=== PATIENT | female | born 1950 | race African-American/Black ===

== ENCOUNTER → 2017-03-06 | Outpatient (CLI) | payer MEDICARE, MEDICAID ==
[~2017-03-06] MED LIST: ATOR20TA65 PO; CARV12.545 PO; FURO40TA5 PO; HYDR-4134 PO; LEVO250T2 PO; SPIR50TA26 PO
== END | disposition home or self-care (01) ==
LOC: MAMMO 13:41
PROVIDERS: ATTEND Internal Medicine Nephrology
DX: Z12.31 Encounter for screening mammogram for malignant neoplasm of breast (principal)
CPT/HCPCS: G0202

== ENCOUNTER 2017-05-19 15:00 | Inpatient (IN) | payer MEDICARE, MEDICAID ==
[~2017-05-19] VITALS: Ht 165.1 cm; Wt 57.2 kg
[2017-05-19 16:33] LABS: BASOPHILS % 1.1 % (0.0-2.0); HEMATOCRIT. 24.7 % (36.0-48.0); HEMOGLOBIN. 7.6 g/dL (12.0-16.0); MEAN CORPUSCULAR HEMOGLOBIN 24.4 pg (28.0-32.0); MEAN CORPUSCULAR VOLUME 79.8 fL (81.0-99.0); MEAN PLATELET VOLUME 8.4 fl (7.4-10.4); MONOCYTES % 7.1 % (2.0-8.0); NEUTROPHILS % 57.8 % (40.0-76.0); PLATELET 170 x1000/uL (130-400)
[2017-05-19 16:36] LABS: PROTHROMBIN TIME 10.5 sec
[2017-05-19 16:43] LABS: CARBON DIOXIDE 25 mEq/L (21-32); CHLORIDE 111 mEq/L (98-107)
[2017-05-19] MEDS: SODIUM CHLORIDE 0.9% 1,000 ML IV ONE ×2 (17:51→19:30)
[2017-05-19 20:18] LABS: CLARITY URINE CLEAR (CLEAR); COLOR URINE YELLOW (YELLOW); GLUCOSE URINE NEGATIVE (NEGATIVE); KETONES URINE NEGATIVE (NEGATIVE); LEUKOCYTE ESTERASE URINE NEGATIVE (NEGATIVE); NITRITE URINE NEGATIVE (NEGATIVE); OCCULT BLOOD URINE TRACE (NEGATIVE); PROTEIN URINE 4+ (NEGATIVE); SPECIFIC GRAVITY URINE 1.014 (1.005-1.030); UROBILINOGEN URINE 0.2 E.U./dL (0.2-1.0)
[2017-05-19 23:30] VITALS: BP 224/105
[2017-05-20] VITALS (14 sets, daily range): BP systolic 140–190; BP diastolic 70–91
[2017-05-20] MEDS ORDERED: HYDROMORPHONE HCL/PF 2MG/ML CPJ IV PRN
[2017-05-20] MEDS: CLONIDINE 0.1MG TABLET PO PRN ×2 (00:37→06:17)
[2017-05-20 07:50] LABS: CARBON DIOXIDE 23 mEq/L (21-32); CHLORIDE 113 mEq/L (98-107); TROPONIN I < 0.02 ng/mL (0.00-0.04)
[2017-05-20] MEDS: HYDRALAZINE HCL 25MG TABLET PO SCH ×3 (08:55→17:29)
[2017-05-20] MEDS: CARVEDILOL 12.5MG TABLET PO SCH ×2 (08:56→17:30)
[2017-05-20] MEDS ORDERED: FUROSEMIDE 40MG TABLET PO SCH (09:00)
[2017-05-20] MEDS: IPRATROPIUM/ALBUTEROL 0.5-3(2.5)MG/3ML NEB INH SCH ×2 (15:37→20:07)
[2017-05-20 17:25] LABS: BASOPHILS % 1.1 % (0.0-2.0); EOSINOPHILS % 3.7 % (0.0-5.0); HEMATOCRIT. 31.1 % (36.0-48.0); HEMOGLOBIN. 10.1 g/dL (12.0-16.0); LYMPHOCYTES % 24.4 % (20.0-50.0); MEAN CORPUSCULAR HEMOGLOBIN 26.4 pg (28.0-32.0); MEAN CORPUSCULAR VOLUME 81.4 fL (81.0-99.0); MEAN PLATELET VOLUME 8.7 fl (7.4-10.4); MONOCYTES % 10.1 % (2.0-8.0); NEUTROPHILS % 60.7 % (40.0-76.0); PLATELET 140 x1000/uL (130-400); RED BLOOD CELL COUNT 3.82 mill/uL (4.2-5.4); RED CELL DISTRIBUTION WIDTH 21.1 % (11.6-14.6)
[2017-05-20] MEDS: ACETAMINOPHEN 325MG TABLET PO PRN (17:40)
[2017-05-20] MEDS ORDERED: DOCUSATE SODIUM 100MG CAPSULE PO PRN (19:30)
[2017-05-20] MEDS ORDERED: ONDANSETRON HCL 4MG/2ML VIAL IV PRN ×2 (19:30)
[2017-05-20] MEDS ORDERED: IPRATROPIUM/ALBUTEROL 0.5-3(2.5)MG/3ML NEB INH PRN (19:30)
[2017-05-20] MEDS: AMLODIPINE 5MG TABLET PO SCH (20:31)
[2017-05-20] MEDS: EPOETIN ALFA 4000UNITS/ML VIAL SUBCUT SCH (20:31)
[2017-05-21] MEDS: CLONIDINE 0.1MG TABLET PO PRN (01:02)
[2017-05-21 04:00] VITALS: BP 143/84
[2017-05-21] MEDS: IPRATROPIUM/ALBUTEROL 0.5-3(2.5)MG/3ML NEB INH SCH ×5 (04:06→20:12)
[2017-05-21 06:13] LABS: CARBON DIOXIDE 24 mEq/L (21-32); CHLORIDE 112 mEq/L (98-107); PHOSPHORUS 2.9 mg/dL (2.5-4.9); TOTAL IRON BINDING CAPACITY 265 ug/dL (250-450)
[2017-05-21] MEDS: OMEPRAZOLE 20MG CAPSULE EXTENDED RELEASE PO SCH (06:38)
[2017-05-21 06:56] LABS: BASOPHILS % 0.9 % (0.0-2.0); EOSINOPHILS % 4.6 % (0.0-5.0); HEMATOCRIT. 28.1 % (36.0-48.0); LYMPHOCYTES % 27.8 % (20.0-50.0); MEAN CORPUSCULAR HEMOGLOBIN 26.1 pg (28.0-32.0); MEAN CORPUSCULAR VOLUME 81.4 fL (81.0-99.0); MEAN PLATELET VOLUME 8.8 fl (7.4-10.4); MONOCYTES % 8.8 % (2.0-8.0); NEUTROPHILS % 57.9 % (40.0-76.0); PLATELET 127 x1000/uL (130-400); RED BLOOD CELL COUNT 3.45 mill/uL (4.2-5.4); RED CELL DISTRIBUTION WIDTH 21.6 % (11.6-14.6)
[2017-05-21] MEDS ORDERED: POTASSIUM CHLORIDE 20MEQ TABLET SR PO NR (07:15)
[2017-05-21 08:00] VITALS: BP 143/71
[2017-05-21] MEDS: SPIRONOLACTONE 50MG TABLET PO SCH ×2 (08:50→21:16)
[2017-05-21] MEDS: CARVEDILOL 12.5MG TABLET PO SCH ×2 (08:51→16:19)
[2017-05-21] MEDS: AMLODIPINE 5MG TABLET PO SCH (08:51)
[2017-05-21] MEDS: LEVOFLOXACIN 250MG TABLET PO SCH (08:52)
[2017-05-21] MEDS: HYDRALAZINE HCL 25MG TABLET PO SCH ×3 (08:58→16:19)
[2017-05-21] MEDS ORDERED: MAGNESIUM 2 G PREMIX 50 ML IV NR (09:00)
[2017-05-21 11:09] LABS: CLARITY URINE CLEAR (CLEAR); COLOR URINE YELLOW (YELLOW); GLUCOSE URINE TRACE (NEGATIVE); KETONES URINE NEGATIVE (NEGATIVE); LEUKOCYTE ESTERASE URINE NEGATIVE (NEGATIVE); NITRITE URINE NEGATIVE (NEGATIVE); OCCULT BLOOD URINE TRACE (NEGATIVE); PROTEIN URINE 4+ (NEGATIVE); SPECIFIC GRAVITY URINE 1.019 (1.005-1.030); UROBILINOGEN URINE 0.2 E.U./dL (0.2-1.0)
[2017-05-21] MEDS: SILDENAFIL CITRATE 20MG TABLET PO SCH ×2 (13:12→21:16)
[2017-05-21 14:34] VITALS: BP 151/71
[2017-05-21] MEDS ORDERED: SODIUM CHLORIDE 0.45% 1,000 ML IV SCH (15:00)
[2017-05-21] MEDS: TRAMADOL 50MG TABLET PO PRN ×2 (15:35→23:49)
[2017-05-21 16:00] VITALS: BP 153/68
[2017-05-21] MEDS: ATORVASTATIN CALCIUM 20MG TABLET PO SCH (21:16)
[2017-05-21] MEDS: ACETAMINOPHEN 325MG TABLET PO PRN (21:18)
[2017-05-21 21:55] VITALS: BP 151/71
[2017-05-21] MEDS ORDERED: ALBUMIN HUMAN 25GM/100ML (25%) IV NR (23:00)
[2017-05-21 23:23] LABS: TOTAL IRON BINDING CAPACITY 262 ug/dL (250-450)
[2017-05-22] VITALS (7 sets, daily range): BP systolic 129–181; BP diastolic 70–85
[2017-05-22] MEDS: IPRATROPIUM/ALBUTEROL 0.5-3(2.5)MG/3ML NEB INH SCH ×4 (04:15→20:00)
[2017-05-22] MEDS: OMEPRAZOLE 20MG CAPSULE EXTENDED RELEASE PO SCH (06:41)
[2017-05-22] MEDS: SILDENAFIL CITRATE 20MG TABLET PO SCH ×3 (06:41→21:19)
[2017-05-22 06:55] LABS: BASOPHILS % 1.3 % (0.0-2.0); EOSINOPHILS % 4.6 % (0.0-5.0); HEMATOCRIT. 28.6 % (36.0-48.0); HEMOGLOBIN. 9.1 g/dL (12.0-16.0); LYMPHOCYTES % 26.2 % (20.0-50.0); MEAN CORPUSCULAR HEMOGLOBIN 26.3 pg (28.0-32.0); MEAN CORPUSCULAR VOLUME 82.6 fL (81.0-99.0); MEAN PLATELET VOLUME 8.8 fl (7.4-10.4); MONOCYTES % 8.7 % (2.0-8.0); NEUTROPHILS % 59.2 % (40.0-76.0); PLATELET 125 x1000/uL (130-400); RED BLOOD CELL COUNT 3.46 mill/uL (4.2-5.4)
[2017-05-22] MEDS ORDERED: ALBUMIN HUMAN 25GM/100ML (25%) IV NR (07:00)
[2017-05-22] MEDS: AMLODIPINE 5MG TABLET PO SCH (09:40)
[2017-05-22] MEDS: HYDRALAZINE HCL 25MG TABLET PO SCH ×3 (09:40→17:13)
[2017-05-22] MEDS: CARVEDILOL 12.5MG TABLET PO SCH ×2 (09:40→17:14)
[2017-05-22] MEDS: LEVOFLOXACIN 250MG TABLET PO SCH (09:40)
[2017-05-22] MEDS: SPIRONOLACTONE 50MG TABLET PO SCH ×2 (09:42→21:19)
[2017-05-22] MEDS: ACETAMINOPHEN 325MG TABLET PO PRN (10:12)
[2017-05-22 10:28] LABS: PLATELET ESTIMATE SLIGHTLY DECREASED
[2017-05-22] MEDS: FERROUS SULFATE 325MG TABLET PO SCH ×2 (12:57→17:14)
[2017-05-22] MEDS: TRAMADOL 50MG TABLET PO PRN ×2 (12:58→21:20)
[2017-05-22] MEDS: LISINOPRIL 20MG TABLET PO SCH (17:14)
[2017-05-22] MEDS: EPOETIN ALFA 4000UNITS/ML VIAL SUBCUT SCH (21:19)
[2017-05-22] MEDS: ATORVASTATIN CALCIUM 20MG TABLET PO SCH (21:19)
[2017-05-23 00:03] VITALS: BP 139/59
[2017-05-23] MEDS: IPRATROPIUM/ALBUTEROL 0.5-3(2.5)MG/3ML NEB INH SCH ×2 (02:45→07:54)
[2017-05-23 04:00] VITALS: BP 151/61
[2017-05-23 05:50] LABS: BASOPHILS % 0.9 % (0.0-2.0); EOSINOPHILS % 0.4 % (0.0-5.0); HEMATOCRIT. 30.7 % (36.0-48.0); HEMOGLOBIN. 9.8 g/dL (12.0-16.0); LYMPHOCYTES % 19.2 % (20.0-50.0); MEAN CORPUSCULAR HEMOGLOBIN 26.8 pg (28.0-32.0); MEAN CORPUSCULAR VOLUME 83.6 fL (81.0-99.0); MEAN PLATELET VOLUME 9.3 fl (7.4-10.4); MONOCYTES % 7.8 % (2.0-8.0); NEUTROPHILS % 71.7 % (40.0-76.0); PLATELET 152 x1000/uL (130-400); RED BLOOD CELL COUNT 3.66 mill/uL (4.2-5.4); RED CELL DISTRIBUTION WIDTH 25.4 % (11.6-14.6)
[2017-05-23] MEDS: SILDENAFIL CITRATE 20MG TABLET PO SCH ×2 (06:51→13:26)
[2017-05-23] MEDS: TRAMADOL 50MG TABLET PO PRN (06:51)
[2017-05-23 08:00] VITALS: BP 127/67
[2017-05-23] MEDS: FERROUS SULFATE 325MG TABLET PO SCH ×2 (08:58→13:26)
[2017-05-23] MEDS: SPIRONOLACTONE 50MG TABLET PO SCH (08:58)
[2017-05-23] MEDS: CARVEDILOL 12.5MG TABLET PO SCH (08:59)
[2017-05-23] MEDS: HYDRALAZINE HCL 25MG TABLET PO SCH ×2 (08:59→13:30)
[2017-05-23] MEDS: AMLODIPINE 5MG TABLET PO SCH (09:00)
[2017-05-23] MEDS ORDERED: FAMOTIDINE 20MG TABLET PO SCH (09:00)
[2017-05-23] MEDS: LISINOPRIL 20MG TABLET PO SCH (09:04)
[2017-05-23 14:03] VITALS: BP 145/85
== END 2017-05-23 14:40 | disposition home or self-care (01) | DRG 432 ==
LOC: ER 20:02 → ENRESERV 21:47 → 6WST 22:23
PROVIDERS: ADMIT Family Medicine Adult Medicine; ATTEND Family Medicine Adult Medicine
PROC: 30233N1 Transfusion of Nonautologous Red Blood Cells into Peripheral Vein, Percutaneous Approach (ICD-10-PCS; principal; 2017-05-20)
PROC: 0W9G3ZZ Drainage of Peritoneal Cavity, Percutaneous Approach (ICD-10-PCS; 2017-05-23)
DX: K74.60 Unspecified cirrhosis of liver (principal); N17.0 Acute kidney failure with tubular necrosis; E43 Unspecified severe protein-calorie malnutrition; I13.0 Hypertensive heart and chronic kidney disease with heart failure and stage 1 through stage 4 chronic kidney disease, or unspecified chronic kidney disease; I50.30 Unspecified diastolic (congestive) heart failure; K76.6 Portal hypertension; R18.8 Other ascites; D50.9 Iron deficiency anemia, unspecified; B18.2 Chronic viral hepatitis C; D63.1 Anemia in chronic kidney disease; D69.6 Thrombocytopenia, unspecified; N18.9 Chronic kidney disease, unspecified; E78.5 Hyperlipidemia, unspecified; E83.42 Hypomagnesemia; F17.210 Nicotine dependence, cigarettes, uncomplicated; I27.2 Other secondary pulmonary hypertension; J44.9 Chronic obstructive pulmonary disease, unspecified; Z79.899 Other long term (current) drug therapy; Z80.0 Family history of malignant neoplasm of digestive organs; Z82.49 Family history of ischemic heart disease and other diseases of the circulatory system; Z90.710 Acquired absence of both cervix and uterus; Z68.21 Body mass index [BMI] 21.0-21.9, adult; Z88.1 Allergy status to other antibiotic agents
CPT/HCPCS: 36415; 36430; 49083; 71010; 76770; 80048; 80053; 80076; 81001; 82270; 82570; 82728; 83540; 83550; 83735; 84100; 84156; 84484; 85025; 85610; 86850; 86900; 86920; 87070; 87086; 87205; 89050; 93005; 93306; 93970; 94640; 94664; 97162; 99291; J0885; J2405; J3475; J7030; J7040; J7050; J7620; P9016; P9047

== ENCOUNTER → 2017-07-15 | Outpatient (CLI) | payer MEDICARE, MEDICAID ==
[~2017-07-15] MED LIST changes: +ALBU18HF2 IH; +ALLO100T PO; +COR6 PO; +DOCU-150 PO; +SILD20TA PO
[2017-07-15 16:53] LABS: BASOPHILS % 1.7 % (0.0-2.0); EOSINOPHILS % 4.2 % (0.0-5.0); HEMOGLOBIN. 8.9 g/dL (12.0-16.0); LYMPHOCYTES % 35.7 % (20.0-50.0); MEAN CORPUSCULAR HEMOGLOBIN 28.4 pg (28.0-32.0); MEAN CORPUSCULAR VOLUME 89.6 fL (81.0-99.0); MEAN PLATELET VOLUME 8.7 fl (7.4-10.4); MONOCYTES % 9.2 % (2.0-8.0); NEUTROPHILS % 49.2 % (40.0-76.0); PLATELET 147 x1000/uL (130-400); RED BLOOD CELL COUNT 3.13 mill/uL (4.2-5.4); RED CELL DISTRIBUTION WIDTH 21.7 % (11.6-14.6)
[2017-07-15 16:59] LABS: PARTIAL THROMBOPLASTIN TIME 31.3 sec (23.4-31.0); PROTHROMBIN TIME 10.2 sec (9.4-11.6)
[2017-07-15 17:08] LABS: CARBON DIOXIDE 24 mEq/L (21-32); CHLORIDE 114 mEq/L (98-107)
[2017-07-15 17:10] LABS: CREATININE URINE 24 HR 580.5 mg/24hr (800-2000)
[2017-07-15 17:19] LABS: PHOSPHORUS 2.7 mg/dL (2.5-4.9)
[2017-07-15 17:36] LABS: VITAMIN B12 SERUM 407 pg/mL (211-911)
[2017-07-17 09:07] LABS: VITAMIN D 25-OH 5.8 ng/mL (30.0-100.0)
[2017-07-17 13:13] LABS: CANCER ANTIGEN 125 164.2 U/mL (0.0-38.1)
== END | disposition home or self-care (01) ==
LOC: LAB 15:55
PROVIDERS: ATTEND Internal Medicine Nephrology
DX: N18.4 Chronic kidney disease, stage 4 (severe) (principal); K72.90 Hepatic failure, unspecified without coma
CPT/HCPCS: 36415; 80053; 82306; 82570; 82607; 83735; 83970; 84100; 84443; 85025; 85610; 85730; 86304

== ENCOUNTER → 2017-07-16 | Day surgery (SDC) | payer MEDICARE, MEDICAID ==
[~2017-07-16] MED LIST changes: +LIDOCAINE HCL 1% 20ML VIAL (Pyxis) INJ ONE; +SODIUM BICARBONATE 4.2% 5 MEQ/10 ML DISP.SYRIN IV ONE
== END | disposition home or self-care (01) ==
LOC: RAD 09:49
PROVIDERS: ATTEND Internal Medicine Nephrology
DX: R18.8 Other ascites (principal)
CPT/HCPCS: 49083; J3490

== ENCOUNTER → 2017-08-28 | Day surgery (SDC) | payer MEDICARE, MEDICAID ==
[~2017-08-28] MED LIST changes: -CARV12.545 PO; -HYDR-4134 PO; -LEVO250T2 PO; +SODIUM BICARBONATE 4% (2.4MEQ) 5ML VIAL IV ONE; -SODIUM BICARBONATE 4.2% 5 MEQ/10 ML DISP.SYRIN IV ONE
== END | disposition home or self-care (01) ==
LOC: ANGIO 09:55
PROVIDERS: ATTEND Internal Medicine Nephrology
DX: R18.8 Other ascites (principal)
CPT/HCPCS: 49083; 77002; C1769; J3490; J7050; L8514

== ENCOUNTER 2017-12-24 12:49 | Inpatient (IN) | payer MEDICARE, MEDICAID ==
[~2017-12-24] VITALS: Ht 162.6 cm; Wt 53.2 kg
[~2017-12-24 12:49] MED LIST changes: -LIDOCAINE HCL 1% 20ML VIAL (Pyxis) INJ ONE; -SODIUM BICARBONATE 4% (2.4MEQ) 5ML VIAL IV ONE
[2017-12-24] MEDS ORDERED: FUROSEMIDE 40MG/4ML VIAL IV STA (16:20)
[2017-12-24] MEDS ORDERED: ASPIRIN 81MG TABLET PO STA (16:20)
[2017-12-24] MEDS ORDERED: ONDANSETRON HCL 4MG/2ML VIAL IV STA (16:20)
[2017-12-24 16:58] LABS: BASOPHILS % 1.7 % (0.0-2.0); EOSINOPHILS % 5.7 % (0.0-5.0); LYMPHOCYTES % 28.1 % (20.0-50.0); MEAN CORPUSCULAR HEMOGLOBIN 27.7 pg (28.0-32.0); MEAN CORPUSCULAR VOLUME 88.3 fL (81.0-99.0); MEAN PLATELET VOLUME 9.1 fl (7.4-10.4); MONOCYTES % 7.4 % (2.0-8.0); NEUTROPHILS % 57.1 % (40.0-76.0); PLATELET 197 x1000/uL (130-400); RED BLOOD CELL COUNT 2.34 mill/uL (4.2-5.4); RED CELL DISTRIBUTION WIDTH 17.5 % (11.6-14.6)
[2017-12-24 17:02] LABS: PARTIAL THROMBOPLASTIN TIME 24.5 sec (23.4-31.0)
[2017-12-24 17:03] LABS: CHLORIDE 113 mEq/L (98-107)
[2017-12-24 17:05] LABS: AMMONIA < 25 uMol/L (<32)
[2017-12-24 17:07] LABS: HEMATOCRIT. 20.7 % (36.0-48.0); HEMOGLOBIN. 6.5 g/dL (12.0-16.0)
[2017-12-24 17:10] LABS: CREATINE KINASE 150 IU/L (26-192); TROPONIN I < 0.02 ng/mL (0.00-0.04)
[2017-12-24] MEDS ORDERED: CLONIDINE 0.2MG TABLET PO ONE (18:45)
[2017-12-24] MEDS ORDERED: AZITHROMYCIN 500 MG TABLET PO ONE (18:45)
[2017-12-24] MEDS ORDERED: CEFTRIAXONE 1 G PREMIX 50 ML IV ONE (18:45)
[2017-12-24] MEDS ORDERED: LORAZEPAM 2MG/ML CPJ IV PRN (23:00)
[2017-12-24] MEDS ORDERED: MAGNESIUM/ALUMINUM HYDROXIDE/SIMETHICONE 30ML UDC PO PRN (23:00)
[2017-12-25] VITALS (8 sets, daily range): BP systolic 136–196; BP diastolic 64–85
[2017-12-25] MEDS ORDERED: HYDROMORPHONE HCL/PF 2MG/ML CPJ IV PRN (00:45)
[2017-12-25] MEDS ORDERED: LORAZEPAM 0.5MG TABLET PO PRN (01:00)
[2017-12-25] MEDS ORDERED: HYDR-2510 PO (03:13)
[2017-12-25 06:05] LABS: CLARITY URINE CLEAR (CLEAR); COLOR URINE YELLOW (YELLOW); KETONES URINE NEGATIVE (NEGATIVE); LEUKOCYTE ESTERASE URINE NEGATIVE (NEGATIVE); NITRITE URINE NEGATIVE (NEGATIVE); OCCULT BLOOD URINE TRACE (NEGATIVE); PROTEIN URINE 3+ (NEGATIVE); SPECIFIC GRAVITY URINE 1.012 (1.005-1.030); UROBILINOGEN URINE 0.2 E.U./dL (0.2-1.0)
[2017-12-25] MEDS: CLONIDINE 0.1MG TABLET PO PRN (06:13)
[2017-12-25 06:50] LABS: BASOPHILS % 1.1 % (0.0-2.0); EOSINOPHILS % 7.1 % (0.0-5.0); HEMATOCRIT. 22.1 % (36.0-48.0); HEMOGLOBIN. 7.2 g/dL (12.0-16.0); LYMPHOCYTES % 20.4 % (20.0-50.0); MEAN CORPUSCULAR HEMOGLOBIN 28.3 pg (28.0-32.0); MEAN CORPUSCULAR VOLUME 86.5 fL (81.0-99.0); MEAN PLATELET VOLUME 8.7 fl (7.4-10.4); MONOCYTES % 11.8 % (2.0-8.0); NEUTROPHILS % 59.6 % (40.0-76.0); PLATELET 134 x1000/uL (130-400); RED BLOOD CELL COUNT 2.56 mill/uL (4.2-5.4); RED CELL DISTRIBUTION WIDTH 16.4 % (11.6-14.6)
[2017-12-25 08:27] LABS: *AMPHETAMINES SCREEN URINE NEGATIVE (NEGATIVE); *BARBITURATES SCREEN URINE NEGATIVE (NEGATIVE); *BENZODIAZEPINES SCREEN URINE NEGATIVE (NEGATIVE); *COCAINE SCREEN URINE NEGATIVE (NEGATIVE); CANNABINOID URINE SCREEN PRESUMTIVE POSITIVE (NEGATIVE); METHADONE URINE SCREEN NEGATIVE (NEGATIVE); OPIATES URINE SCREEN NEGATIVE (NEGATIVE); PHENCYCLIDINE URINE SCREEN NEGATIVE (NEGATIVE)
[2017-12-25] MEDS: LISINOPRIL 20MG TABLET PO SCH ×2 (08:42→08:47)
[2017-12-25] MEDS ORDERED: FUROSEMIDE 40MG/4ML VIAL IVP ONE (09:00)
[2017-12-25] MEDS ORDERED: ENOXAPARIN 30MG/0.3ML SYR SUBCUT SCH (09:00)
[2017-12-25] MEDS ORDERED: DOCUSATE SODIUM 100MG CAPSULE PO PRN ×2 (10:45)
[2017-12-25] MEDS ORDERED: ONDANSETRON HCL 4MG/2ML VIAL IV PRN (10:45)
[2017-12-25] MEDS ORDERED: IPRATROPIUM/ALBUTEROL 0.5-3(2.5)MG/3ML NEB INH PRN (11:00)
[2017-12-25] MEDS: AZITHROMYCIN 500 MG TABLET PO SCH (12:33)
[2017-12-25] MEDS: HYDROCHLOROTHIAZIDE 25MG TABLET PO SCH ×2 (12:34→18:25)
[2017-12-25] MEDS: ALLOPURINOL 100 MG TABLET PO SCH (12:34)
[2017-12-25] MEDS: OMEPRAZOLE 20MG CAPSULE EXTENDED RELEASE PO SCH (12:34)
[2017-12-25] MEDS: CARVEDILOL 6.25 MG TABLET PO SCH ×2 (12:34→21:40)
[2017-12-25] MEDS ORDERED: HYDROCHLOROTHIAZIDE 50MG TABLET PO SCH (13:00)
[2017-12-25] MEDS: SILDENAFIL CITRATE 20MG TABLET PO SCH ×2 (14:41→21:40)
[2017-12-25 18:09] LABS: AMMONIA 27 uMol/L (<32)
[2017-12-25] MEDS: SPIRONOLACTONE 50MG TABLET PO SCH (18:25)
[2017-12-25] MEDS ORDERED: ZOLPIDEM TARTRATE 5MG TABLET PO PRN (21:00)
[2017-12-25] MEDS: ATORVASTATIN CALCIUM 20MG TABLET PO SCH (21:40)
[2017-12-25] MEDS: IPRATROPIUM/ALBUTEROL 0.5-3(2.5)MG/3ML NEB HHN SCH (21:58)
[2017-12-26] VITALS (7 sets, daily range): BP systolic 127–175; BP diastolic 61–74
[2017-12-26] MEDS: CLONIDINE 0.1MG TABLET PO PRN ×3 (00:49→16:47)
[2017-12-26] MEDS: IPRATROPIUM/ALBUTEROL 0.5-3(2.5)MG/3ML NEB HHN SCH ×4 (03:01→21:14)
[2017-12-26] MEDS: SILDENAFIL CITRATE 20MG TABLET PO SCH ×3 (06:14→21:19)
[2017-12-26 06:53] LABS: BASOPHILS % 1.5 % (0.0-2.0); HEMATOCRIT. 22.1 % (36.0-48.0); HEMOGLOBIN. 7.2 g/dL (12.0-16.0); LYMPHOCYTES % 29.8 % (20.0-50.0); MEAN CORPUSCULAR HEMOGLOBIN 27.6 pg (28.0-32.0); MEAN CORPUSCULAR VOLUME 84.8 fL (81.0-99.0); MEAN PLATELET VOLUME 8.9 fl (7.4-10.4); NEUTROPHILS % 51.7 % (40.0-76.0); PLATELET 134 x1000/uL (130-400); RED CELL DISTRIBUTION WIDTH 16.3 % (11.6-14.6)
[2017-12-26 07:35] LABS: CHLORIDE 112 mEq/L (98-107)
[2017-12-26 07:46] LABS: AMYLASE 124 IU/L (25-115)
[2017-12-26] MEDS: CARVEDILOL 6.25 MG TABLET PO SCH ×2 (08:15→21:19)
[2017-12-26] MEDS: SPIRONOLACTONE 50MG TABLET PO SCH ×2 (08:15→16:46)
[2017-12-26] MEDS: AZITHROMYCIN 500 MG TABLET PO SCH (08:15)
[2017-12-26] MEDS: ALLOPURINOL 100 MG TABLET PO SCH (08:15)
[2017-12-26] MEDS: OMEPRAZOLE 20MG CAPSULE EXTENDED RELEASE PO SCH (08:15)
[2017-12-26] MEDS ORDERED: SODIUM BICARBONATE 4% (2.4MEQ) 5ML VIAL IV ONE (15:18)
[2017-12-26] MEDS ORDERED: LIDOCAINE HCL 1% 20ML VIAL (Pyxis) INJ ONE (15:18)
[2017-12-26] MEDS ORDERED: EPOETIN ALFA 4000UNITS/ML VIAL SUBCUT SCH (21:00)
[2017-12-26] MEDS: ATORVASTATIN CALCIUM 20MG TABLET PO SCH (21:19)
[2017-12-27] VITALS (11 sets, daily range): BP systolic 150–182; BP diastolic 61–81
[2017-12-27] MEDS: IPRATROPIUM/ALBUTEROL 0.5-3(2.5)MG/3ML NEB HHN SCH ×5 (00:37→18:00)
[2017-12-27] MEDS: ACETAMINOPHEN 650MG/20.3ML UDC GT PRN (05:20)
[2017-12-27] MEDS: CLONIDINE 0.1MG TABLET PO PRN ×2 (05:20→16:27)
[2017-12-27] MEDS: SILDENAFIL CITRATE 20MG TABLET PO SCH ×3 (06:27→22:05)
[2017-12-27] MEDS: SPIRONOLACTONE 50MG TABLET PO SCH ×2 (06:27→17:00)
[2017-12-27 07:34] LABS: EOSINOPHILS % 6.6 % (0.0-5.0); LYMPHOCYTES % 28.2 % (20.0-50.0); MEAN CORPUSCULAR HEMOGLOBIN 27.8 pg (28.0-32.0); MEAN CORPUSCULAR VOLUME 85.1 fL (81.0-99.0); MEAN PLATELET VOLUME 9.3 fl (7.4-10.4); MONOCYTES % 9.7 % (2.0-8.0); NEUTROPHILS % 54.5 % (40.0-76.0); PLATELET 142 x1000/uL (130-400); RED BLOOD CELL COUNT 2.43 mill/uL (4.2-5.4)
[2017-12-27 07:46] LABS: HEMOGLOBIN. 6.8 g/dL (12.0-16.0)
[2017-12-27 07:47] LABS: HEMATOCRIT. 20.7 % (36.0-48.0)
[2017-12-27 08:11] LABS: AMYLASE 111 IU/L (25-115)
[2017-12-27] MEDS: OMEPRAZOLE 20MG CAPSULE EXTENDED RELEASE PO SCH (09:18)
[2017-12-27] MEDS: ALLOPURINOL 100 MG TABLET PO SCH (09:18)
[2017-12-27] MEDS: CARVEDILOL 6.25 MG TABLET PO SCH ×2 (09:18→20:43)
[2017-12-27] MEDS: AZITHROMYCIN 500 MG TABLET PO SCH (09:18)
[2017-12-27] MEDS ORDERED: AMLODIPINE 5MG TABLET PO NR (17:50)
[2017-12-27] MEDS ORDERED: HYDRALAZINE 20MG/ML VIAL IV PRN (18:00)
[2017-12-27] MEDS ORDERED: HYDRALAZINE 20MG/ML VIAL IV NR (20:30)
[2017-12-27] MEDS: ATORVASTATIN CALCIUM 20MG TABLET PO SCH (20:43)
[2017-12-28] VITALS (11 sets, daily range): BP systolic 114–160; BP diastolic 59–78
[2017-12-28] MEDS: IPRATROPIUM/ALBUTEROL 0.5-3(2.5)MG/3ML NEB HHN SCH (01:33)
[2017-12-28] MEDS: SPIRONOLACTONE 50MG TABLET PO SCH (06:31)
[2017-12-28] MEDS: SILDENAFIL CITRATE 20MG TABLET PO SCH ×2 (06:31→14:00)
[2017-12-28] MEDS: OMEPRAZOLE 20MG CAPSULE EXTENDED RELEASE PO SCH (08:11)
[2017-12-28] MEDS: ACETAMINOPHEN 650MG/20.3ML UDC GT PRN (08:16)
[2017-12-28] MEDS: CARVEDILOL 6.25 MG TABLET PO SCH (08:17)
[2017-12-28] MEDS: AZITHROMYCIN 500 MG TABLET PO SCH (08:17)
[2017-12-28] MEDS: ALLOPURINOL 100 MG TABLET PO SCH (08:17)
[2017-12-28 08:19] LABS: BASOPHILS % 1.1 % (0.0-2.0); EOSINOPHILS % 5.8 % (0.0-5.0); HEMATOCRIT. 30.7 % (36.0-48.0); LYMPHOCYTES % 24.9 % (20.0-50.0); MEAN CORPUSCULAR HEMOGLOBIN 28.4 pg (28.0-32.0); MEAN CORPUSCULAR VOLUME 85.7 fL (81.0-99.0); MEAN PLATELET VOLUME 9.2 fl (7.4-10.4); MONOCYTES % 10.5 % (2.0-8.0); NEUTROPHILS % 57.7 % (40.0-76.0); PLATELET 155 x1000/uL (130-400); RED BLOOD CELL COUNT 3.58 mill/uL (4.2-5.4); RED CELL DISTRIBUTION WIDTH 15.7 % (11.6-14.6)
[2017-12-28 08:23] LABS: HEMOGLOBIN. 10.2 g/dL (12.0-16.0)
[2017-12-28] MEDS ORDERED: HYDROCODONE/ACETAMINOPHEN 5/325MG TABLET PO PRN (15:00)
[2017-12-28] MEDS: CLONIDINE 0.1MG TABLET PO PRN (15:33)
== END 2017-12-28 17:55 | disposition home or self-care (01) | DRG 291 ==
LOC: ER 15:19 → 7WST 18:38 → EDBEDREQTM 18:41 → EDBEDREQ 18:41 → ENRESERV 21:44
PROVIDERS: ADMIT Internal Medicine Nephrology; ATTEND Internal Medicine Nephrology
PROC: 30233N1 Transfusion of Nonautologous Red Blood Cells into Peripheral Vein, Percutaneous Approach (ICD-10-PCS; principal; 2017-12-24)
DX: I13.0 Hypertensive heart and chronic kidney disease with heart failure and stage 1 through stage 4 chronic kidney disease, or unspecified chronic kidney disease (principal); K85.90 Acute pancreatitis without necrosis or infection, unspecified; N17.0 Acute kidney failure with tubular necrosis; E43 Unspecified severe protein-calorie malnutrition; E87.2 Acidosis; K76.6 Portal hypertension; I27.20 Pulmonary hypertension, unspecified; R18.8 Other ascites; I50.31 Acute diastolic (congestive) heart failure; J44.0 Chronic obstructive pulmonary disease with (acute) lower respiratory infection; J98.11 Atelectasis; D63.1 Anemia in chronic kidney disease; N18.3 Chronic kidney disease, stage 3 (moderate); F12.90 Cannabis use, unspecified, uncomplicated; B18.2 Chronic viral hepatitis C; E78.5 Hyperlipidemia, unspecified; F17.210 Nicotine dependence, cigarettes, uncomplicated; K74.60 Unspecified cirrhosis of liver; J20.9 Acute bronchitis, unspecified; K72.90 Hepatic failure, unspecified without coma; Z88.1 Allergy status to other antibiotic agents; Z90.710 Acquired absence of both cervix and uterus; Z98.51 Tubal ligation status; Z79.899 Other long term (current) drug therapy; Z71.6 Tobacco abuse counseling; Z68.20 Body mass index [BMI] 20.0-20.9, adult; R06.03 Acute respiratory distress
CPT/HCPCS: 36415; 36430; 71045; 74018; 76705; 80048; 80053; 80076; 80305; 81003; 82140; 82150; 82550; 82570; 83605; 83690; 84156; 84443; 84484; 85025; 85610; 85730; 86850; 86900; 86920; 87040; 93005; 93970; 94640; 96365; 96366; 96375; 99285; J0360; J0696; J0885; J1650; J1940; J2405; J3490; J7050; J7620; P9016

== ENCOUNTER 2018-07-13 17:29 | Inpatient (IN) | payer MEDICARE, MEDICAID ==
[~2018-07-13] VITALS: Ht 165.1 cm; Wt 50.8 kg
[~2018-07-13 17:29] MED LIST changes: +HYDR-2510 PO; -SPIR50TA26 PO; +SPIR50TA5 PO
[2018-07-13] MEDS ORDERED: SODIUM CHLORIDE 0.9% 1,000 ML IV ONE (18:03)
[2018-07-13 19:02] LABS: MEAN CORPUSCULAR HEMOGLOBIN 22.3 pg (28.0-32.0); MEAN CORPUSCULAR VOLUME 74.8 fL (81.0-99.0); MEAN PLATELET VOLUME 7.8 fl (7.4-10.4); PLATELET 175 x1000/uL (130-400); RED BLOOD CELL COUNT 1.95 mill/uL (4.2-5.4); RED CELL DISTRIBUTION WIDTH 20.4 % (11.6-14.6)
[2018-07-13 19:08] LABS: CHLORIDE 115 mEq/L (98-107)
[2018-07-13 19:10] LABS: HEMOGLOBIN. 4.4 g/dL (12.0-16.0)
[2018-07-13 19:11] LABS: HEMATOCRIT. 14.6 % (36.0-48.0)
[2018-07-13 19:34] LABS: PLATELET ESTIMATE NORMAL
[2018-07-13 23:10] VITALS: BP 186/62
[2018-07-13] MEDS ORDERED: LORAZEPAM 2MG/ML CPJ IV PRN (23:30)
[2018-07-13] MEDS ORDERED: ACETAMINOPHEN 325MG TABLET PO PRN (23:30)
[2018-07-13] MEDS ORDERED: ENOXAPARIN 40MG/0.4ML SYR SUBCUT SCH (23:30)
[2018-07-13] MEDS ORDERED: ONDANSETRON HCL 4MG/2ML INJ IV PRN (23:30)
[2018-07-14] VITALS (9 sets, daily range): BP systolic 131–167; BP diastolic 55–67
[2018-07-14] MEDS ORDERED: CLONIDINE 0.1MG TABLET PO PRN (01:00)
[2018-07-14] MEDS: METOPROLOL TARTRATE 50MG TABLET PO SCH ×3 (01:37→21:30)
[2018-07-14] MEDS: SILDENAFIL CITRATE 20MG TABLET PO SCH ×3 (06:10→21:31)
[2018-07-14] MEDS: HYDRALAZINE HCL 50MG TABLET PO SCH ×3 (06:11→21:31)
[2018-07-14 08:21] LABS: CLARITY URINE CLEAR (CLEAR); COLOR URINE YELLOW (YELLOW); KETONES URINE NEGATIVE (NEGATIVE); LEUKOCYTE ESTERASE URINE NEGATIVE (NEGATIVE); NITRITE URINE NEGATIVE (NEGATIVE); OCCULT BLOOD URINE NEGATIVE (NEGATIVE); PH URINE 5.5 (4.5-8.0); PROTEIN URINE 3+ (NEGATIVE); SPECIFIC GRAVITY URINE 1.011 (1.005-1.030); UROBILINOGEN URINE 0.2 E.U./dL (0.2-1.0)
[2018-07-14 08:43] LABS: *BARBITURATES SCREEN URINE NEGATIVE (NEGATIVE); METHADONE URINE SCREEN NEGATIVE (NEGATIVE); OPIATES URINE SCREEN NEGATIVE (NEGATIVE); PHENCYCLIDINE URINE SCREEN NEGATIVE (NEGATIVE)
[2018-07-14 08:44] LABS: *BENZODIAZEPINES SCREEN URINE NEGATIVE (NEGATIVE); *COCAINE SCREEN URINE NEGATIVE (NEGATIVE)
[2018-07-14 08:46] LABS: *AMPHETAMINES SCREEN URINE NEGATIVE (NEGATIVE); CANNABINOID URINE SCREEN PRESUMTIVE POSITIVE (NEGATIVE)
[2018-07-14] MEDS: ALLOPURINOL 100 MG TABLET PO SCH (09:21)
[2018-07-14] MEDS: CARVEDILOL 6.25 MG TABLET PO SCH ×2 (09:21→21:29)
[2018-07-14 09:46] LABS: BASOPHILS % 1.5 % (0.0-2.0); EOSINOPHILS % 5.8 % (0.0-5.0); HEMATOCRIT. 23.8 % (36.0-48.0); HEMOGLOBIN. 7.6 g/dL (12.0-16.0); LYMPHOCYTES % 17.1 % (20.0-50.0); MEAN CORPUSCULAR HEMOGLOBIN 26.1 pg (28.0-32.0); MEAN CORPUSCULAR VOLUME 81.1 fL (81.0-99.0); MEAN PLATELET VOLUME 8.3 fl (7.4-10.4); MONOCYTES % 10.7 % (2.0-8.0); NEUTROPHILS % 64.9 % (40.0-76.0); PLATELET 157 x1000/uL (130-400); RED BLOOD CELL COUNT 2.93 mill/uL (4.2-5.4); RED CELL DISTRIBUTION WIDTH 22.5 % (11.6-14.6)
[2018-07-14] MEDS: FUROSEMIDE 40MG/4ML VIAL IVP SCH (10:23)
[2018-07-14] MEDS ORDERED: IPRATROPIUM/ALBUTEROL 0.5-3(2.5)MG/3ML NEB HHN PRN (12:30)
[2018-07-14] MEDS ORDERED: SODIUM BICARBONATE 4% (2.4MEQ) 5ML VIAL IV ONE (12:36)
[2018-07-14] MEDS ORDERED: LIDOCAINE HCL 1% 10 MG/ML 10ML VIAL ONE (12:36)
[2018-07-14] MEDS ORDERED: BUDESONIDE 0.5MG/2ML NEB HHN SCH (13:00)
[2018-07-14] MEDS ORDERED: GELATIN SPONGE,ABSORBABLE 12-7MM SPONGE ONE (14:06)
[2018-07-14] MEDS: NICOTINE 7MG PATCH TD SCH (14:46)
[2018-07-14] MEDS: BISACODYL 5MG TABLET PO NR ×2 (15:55→18:20)
[2018-07-14] MEDS: PANTOPRAZOLE 40MG DR TABLET PO SCH (18:20)
[2018-07-14] MEDS: ACETAMINOPHEN WITH CODEINE 300/30MG TABLET PO PRN (23:37)
[2018-07-15 04:51] VITALS: BP 109/45
[2018-07-15] MEDS: HYDRALAZINE HCL 50MG TABLET PO SCH ×3 (06:00→21:13)
[2018-07-15 06:07] LABS: HEMATOCRIT 24.6 % (36.0-48.0); HEMOGLOBIN 7.9 g/dL (12.0-16.0); MEAN CORPUSCULAR HEMOGLOBIN 25.9 pg (28.0-32.0); MEAN CORPUSCULAR VOLUME 80.9 fL (81.0-99.0); PLATELET 138 x1000/uL (130-400); RED BLOOD CELL COUNT 3.05 mill/uL (4.2-5.4)
[2018-07-15 07:02] LABS: FOLIC ACID (FOLATE) SERUM 10.8 ng/mL (>5.38)
[2018-07-15] MEDS: SILDENAFIL CITRATE 20MG TABLET PO SCH ×3 (07:02→21:13)
[2018-07-15 08:00] VITALS: BP 147/64
[2018-07-15] MEDS: FUROSEMIDE 40MG/4ML VIAL IVP SCH (08:53)
[2018-07-15] MEDS: PANTOPRAZOLE 40MG DR TABLET PO SCH (09:08)
[2018-07-15] MEDS: CARVEDILOL 6.25 MG TABLET PO SCH ×2 (09:08→21:12)
[2018-07-15] MEDS: ALLOPURINOL 100 MG TABLET PO SCH (09:09)
[2018-07-15] MEDS: METOPROLOL TARTRATE 50MG TABLET PO SCH ×2 (09:09→21:12)
[2018-07-15] MEDS: NICOTINE 7MG PATCH TD SCH (09:09)
[2018-07-15 12:00] VITALS: BP 125/54
[2018-07-15 15:19] LABS: HEMATOCRIT 25.1 % (36.0-48.0); MEAN CORPUSCULAR HEMOGLOBIN 25.8 pg (28.0-32.0); MEAN CORPUSCULAR VOLUME 80.7 fL (81.0-99.0); PLATELET 139 x1000/uL (130-400); RED BLOOD CELL COUNT 3.11 mill/uL (4.2-5.4); RED CELL DISTRIBUTION WIDTH 23.2 % (11.6-14.6)
[2018-07-15 15:35] LABS: CHLORIDE 114 mEq/L (98-107)
[2018-07-15 16:00] VITALS: BP 150/68
[2018-07-15] MEDS ORDERED: SORBITOL 70% SOLN 30ML PO NR ×2 (16:00→20:00)
[2018-07-15 20:00] VITALS: BP 158/70
[2018-07-15] MEDS: PANTOPRAZOLE SODIUM 40 MG/VIAL IV SCH (21:12)
[2018-07-16] VITALS: BP 152/65
[2018-07-16 04:00] VITALS: BP 140/60
[2018-07-16] MEDS: SILDENAFIL CITRATE 20MG TABLET PO SCH (05:13)
[2018-07-16] MEDS: HYDRALAZINE HCL 50MG TABLET PO SCH (05:14)
[2018-07-16 07:31] LABS: PARTIAL THROMBOPLASTIN TIME 31.5 sec (23.4-31.0); PROTHROMBIN TIME 9.8 sec (9.1-11.1)
[2018-07-16 07:35] LABS: BASOPHILS % 1.3 % (0.0-2.0); HEMATOCRIT. 24.2 % (36.0-48.0); HEMOGLOBIN. 7.8 g/dL (12.0-16.0); LYMPHOCYTES % 28.4 % (20.0-50.0); MEAN CORPUSCULAR HEMOGLOBIN 25.9 pg (28.0-32.0); MEAN CORPUSCULAR VOLUME 80.1 fL (81.0-99.0); MEAN PLATELET VOLUME 8.8 fl (7.4-10.4); MONOCYTES % 8.9 % (2.0-8.0); NEUTROPHILS % 53.4 % (40.0-76.0); PLATELET 147 x1000/uL (130-400); RED BLOOD CELL COUNT 3.02 mill/uL (4.2-5.4); RED CELL DISTRIBUTION WIDTH 23.5 % (11.6-14.6)
[2018-07-16 08:00] VITALS: BP 132/57
[2018-07-16 08:00] LABS: CHLORIDE 116 mEq/L (98-107)
[2018-07-16] MEDS: PANTOPRAZOLE SODIUM 40 MG/VIAL IV SCH (09:00)
[2018-07-16] MEDS: FUROSEMIDE 40MG/4ML VIAL IVP SCH (09:10)
[2018-07-16] MEDS: ACETAMINOPHEN WITH CODEINE 300/30MG TABLET PO PRN (09:11)
[2018-07-16] MEDS: CARVEDILOL 6.25 MG TABLET PO SCH (09:12)
[2018-07-16] MEDS: ALLOPURINOL 100 MG TABLET PO SCH (09:12)
[2018-07-16] MEDS: METOPROLOL TARTRATE 50MG TABLET PO SCH (09:14)
[2018-07-16] MEDS: NICOTINE 7MG PATCH TD SCH (09:19)
[2018-07-16] MEDS ORDERED: SORBITOL 70% SOLN 30ML PO SCH (09:45)
[2018-07-16] MEDS ORDERED: CARVEDILOL 6.25 MG TABLET PO SCH (11:30)
[2018-07-16 11:46] VITALS: BP 141/65
[2018-07-16 12:00] VITALS: BP 144/65
== END 2018-07-16 12:44 | disposition home or self-care (01) | DRG 377 ==
LOC: EDBEDREQ 19:47 → EDBEDREQTM 19:47 → ENRESERV 19:56 → ER 20:25 → 7WST 21:25
PROVIDERS: ADMIT Internal Medicine Nephrology; ATTEND Internal Medicine Nephrology
PROC: 30233N1 Transfusion of Nonautologous Red Blood Cells into Peripheral Vein, Percutaneous Approach (ICD-10-PCS; principal; 2018-07-13)
PROC: 0W9G3ZZ Drainage of Peritoneal Cavity, Percutaneous Approach (ICD-10-PCS; 2018-07-14)
PROC: 0WPGX0Z Removal of Drainage Device from Peritoneal Cavity, External Approach (ICD-10-PCS; 2018-07-14)
DX: K62.5 Hemorrhage of anus and rectum (principal); E43 Unspecified severe protein-calorie malnutrition; N17.9 Acute kidney failure, unspecified; Z68.1 Body mass index [BMI] 19.9 or less, adult; N18.4 Chronic kidney disease, stage 4 (severe); I13.0 Hypertensive heart and chronic kidney disease with heart failure and stage 1 through stage 4 chronic kidney disease, or unspecified chronic kidney disease; K76.6 Portal hypertension; F17.210 Nicotine dependence, cigarettes, uncomplicated; B18.2 Chronic viral hepatitis C; D50.0 Iron deficiency anemia secondary to blood loss (chronic); K70.31 Alcoholic cirrhosis of liver with ascites; J44.9 Chronic obstructive pulmonary disease, unspecified; I50.9 Heart failure, unspecified; Z90.710 Acquired absence of both cervix and uterus; Z71.6 Tobacco abuse counseling; Z88.1 Allergy status to other antibiotic agents; Z79.899 Other long term (current) drug therapy
CPT/HCPCS: 36415; 49083; 71045; 76942; 80048; 80053; 80305; 81003; 82270; 82607; 82728; 82746; 83540; 83550; 83735; 84100; 85025; 85027; 85610; 85730; 86850; 86900; 86920; 93005; 99291; C9113; J1940; J3490; J7030; J7040; J7050; P9016

== ENCOUNTER → 2018-09-18 | Day surgery (SDC) | payer MEDICARE, MEDICAID ==
[~2018-09-18] MED LIST changes: -ATOR20TA65 PO; -DOCU-150 PO; +HYDR-4135 PO; +LIDOCAINE HCL 1% 20ML VIAL (Pyxis) INJ ONE; +SODIUM BICARBONATE 4% (2.4MEQ) 5ML VIAL IV ONE; -SPIR50TA5 PO
== END | disposition home or self-care (01) ==
LOC: RAD 12:33
PROVIDERS: ATTEND Internal Medicine Nephrology
DX: K70.31 Alcoholic cirrhosis of liver with ascites (principal); I13.0 Hypertensive heart and chronic kidney disease with heart failure and stage 1 through stage 4 chronic kidney disease, or unspecified chronic kidney disease; N18.4 Chronic kidney disease, stage 4 (severe); I50.9 Heart failure, unspecified; J44.9 Chronic obstructive pulmonary disease, unspecified; B18.2 Chronic viral hepatitis C; F17.210 Nicotine dependence, cigarettes, uncomplicated; Z79.899 Other long term (current) drug therapy; Z98.890 Other specified postprocedural states; Z90.710 Acquired absence of both cervix and uterus; Z88.1 Allergy status to other antibiotic agents
CPT/HCPCS: 49083; C1729; J3490

== ENCOUNTER 2018-09-23 19:34 | Inpatient (IN) | payer MEDICARE, MEDICAID ==
[~2018-09-23] VITALS: Ht 165.1 cm; Wt 60.3 kg
[~2018-09-23 19:34] MED LIST changes: -HYDR-4135 PO; -LIDOCAINE HCL 1% 20ML VIAL (Pyxis) INJ ONE; -SODIUM BICARBONATE 4% (2.4MEQ) 5ML VIAL IV ONE
[2018-09-23] MEDS ORDERED: PREDNISONE 20MG TABLET PO STA (22:48)
[2018-09-23] MEDS ORDERED: IPRATROPIUM BROMIDE (0.02%) 0.5MG/2.5ML NEB HHN STA (22:48)
[2018-09-23] MEDS ORDERED: ALBUTEROL (0.083%) 2.5MG/3ML NEB HHN STA (22:48)
[2018-09-23 23:03] LABS: BASOPHILS % 1.1 % (0.0-2.0); EOSINOPHILS % 3.5 % (0.0-5.0); LYMPHOCYTES % 20.2 % (20.0-50.0); MEAN CORPUSCULAR HEMOGLOBIN 24.5 pg (28.0-32.0); MEAN CORPUSCULAR VOLUME 83.3 fL (81.0-99.0); MEAN PLATELET VOLUME 8.9 fl (7.4-10.4); MONOCYTES % 10.7 % (2.0-8.0); NEUTROPHILS % 64.5 % (40.0-76.0); PLATELET 178 x1000/uL (130-400); RED CELL DISTRIBUTION WIDTH 23.5 % (11.6-14.6)
[2018-09-23 23:07] LABS: CHLORIDE 115 mEq/L (98-107)
[2018-09-23 23:08] LABS: HEMATOCRIT. 14.2 % (36.0-48.0); HEMOGLOBIN. 4.2 g/dL (12.0-16.0)
[2018-09-23 23:17] LABS: PLATELET ESTIMATE NORMAL
[2018-09-23 23:25] LABS: PARTIAL THROMBOPLASTIN TIME 26.4 sec (23.4-31.0); PROTHROMBIN TIME 9.6 sec (9.1-11.1)
[2018-09-24] MEDS ORDERED: ENOXAPARIN 40MG/0.4ML SYR SUBCUT SCH ×2 (07:00→10:45)
[2018-09-24] MEDS ORDERED: LORAZEPAM 2MG/ML CPJ IV PRN (07:00)
[2018-09-24] MEDS ORDERED: ACETAMINOPHEN 325MG TABLET PO PRN (07:00)
[2018-09-24] MEDS ORDERED: ONDANSETRON HCL 4MG/2ML INJ IV PRN ×2 (07:00→10:45)
[2018-09-24] MEDS ORDERED: PANTOPRAZOLE SODIUM 40 MG/VIAL IV SCH ×3 (09:00→12:50)
[2018-09-24 12:00] VITALS: BP_SYST 147; BP_SYST 174; BP_DIAS 68; BP_DIAS 77
[2018-09-24] MEDS ORDERED: ALBUTEROL 6.7GM HFA INHALER INH PRN (12:00)
[2018-09-24] MEDS ORDERED: MEDICATION NOT ON FORMULARY EA (Allopurinol 100 MG) PO SCH (12:00)
[2018-09-24] MEDS ORDERED: HYDROCHLOROTHIAZIDE 50 MG PO SCH (13:00)
[2018-09-24] MEDS ORDERED: ALBUTEROL (0.083%) 2.5MG/3ML NEB HHN PRN (13:15)
[2018-09-24 13:34] LABS: BASOPHILS % 0.2 % (0.0-2.0); HEMATOCRIT. 24.3 % (36.0-48.0); HEMOGLOBIN. 7.8 g/dL (12.0-16.0); LYMPHOCYTES % 8.3 % (20.0-50.0); MEAN CORPUSCULAR HEMOGLOBIN 27.3 pg (28.0-32.0); MEAN CORPUSCULAR VOLUME 85.3 fL (81.0-99.0); MEAN PLATELET VOLUME 8.6 fl (7.4-10.4); MONOCYTES % 3.1 % (2.0-8.0); NEUTROPHILS % 88.4 % (40.0-76.0); PLATELET 168 x1000/uL (130-400); RED BLOOD CELL COUNT 2.85 mill/uL (4.2-5.4); RED CELL DISTRIBUTION WIDTH 20.2 % (11.6-14.6)
[2018-09-24] MEDS: HYDRALAZINE HCL 50MG TABLET PO SCH ×2 (13:49→22:45)
[2018-09-24] MEDS: ALLOPURINOL 100 MG TABLET PO SCH (13:50)
[2018-09-24] MEDS: CARVEDILOL 6.25 MG TABLET PO SCH ×2 (13:50→20:56)
[2018-09-24] MEDS: SILDENAFIL CITRATE 20MG TABLET PO SCH ×2 (13:50→22:45)
[2018-09-24 16:00] VITALS: BP 152/72
[2018-09-24] MEDS ORDERED: MEDICATION NOT ON FORMULARY EA (Furosemide 40 MG) PO SCH (17:00)
[2018-09-24] MEDS: FUROSEMIDE 40MG TABLET PO SCH (17:18)
[2018-09-24] MEDS ORDERED: HYDR-4135 PO (18:00)
[2018-09-24 20:00] VITALS: BP 105/68
[2018-09-24 20:21] LABS: CLARITY URINE CLEAR (CLEAR); COLOR URINE YELLOW (YELLOW); KETONES URINE NEGATIVE (NEGATIVE); LEUKOCYTE ESTERASE URINE NEGATIVE (NEGATIVE); NITRITE URINE NEGATIVE (NEGATIVE); OCCULT BLOOD URINE NEGATIVE (NEGATIVE); PROTEIN URINE 3+ (NEGATIVE); SPECIFIC GRAVITY URINE 1.014 (1.005-1.030); UROBILINOGEN URINE 0.2 E.U./dL (0.2-1.0)
[2018-09-24] MEDS: TRAMADOL 50MG TABLET PO PRN (22:44)
[2018-09-25] VITALS (11 sets, daily range): BP systolic 122–165; BP diastolic 56–72
[2018-09-25] MEDS: FUROSEMIDE 40MG TABLET PO SCH ×2 (06:29→17:57)
[2018-09-25] MEDS: SILDENAFIL CITRATE 20MG TABLET PO SCH ×3 (06:29→21:14)
[2018-09-25] MEDS: HYDRALAZINE HCL 50MG TABLET PO SCH ×3 (06:30→21:14)
[2018-09-25 08:06] LABS: BASOPHILS % 0.5 % (0.0-2.0); EOSINOPHILS % 0.1 % (0.0-5.0); HEMATOCRIT. 21.6 % (36.0-48.0); LYMPHOCYTES % 9.8 % (20.0-50.0); MEAN CORPUSCULAR HEMOGLOBIN 27.3 pg (28.0-32.0); MEAN CORPUSCULAR VOLUME 84.9 fL (81.0-99.0); MEAN PLATELET VOLUME 8.6 fl (7.4-10.4); MONOCYTES % 9.5 % (2.0-8.0); NEUTROPHILS % 80.1 % (40.0-76.0); PLATELET 148 x1000/uL (130-400); RED BLOOD CELL COUNT 2.54 mill/uL (4.2-5.4)
[2018-09-25] MEDS: PANTOPRAZOLE SODIUM 40 MG/VIAL IV SCH ×2 (08:06→21:13)
[2018-09-25] MEDS: ALLOPURINOL 100 MG TABLET PO SCH (08:06)
[2018-09-25] MEDS: CARVEDILOL 6.25 MG TABLET PO SCH ×2 (08:06→21:14)
[2018-09-25 17:49] LABS: TOTAL IRON BINDING CAPACITY 282 ug/dL (250-450)
[2018-09-25 21:51] LABS: HEMOGLOBIN 9.3 g/dL (12.0-16.0)
[2018-09-25] MEDS ORDERED: LEVOFLOXACIN 250MG PREMIX 50 ML IV SCH (23:00)
[2018-09-26 00:04] VITALS: BP 156/69
[2018-09-26] MEDS: LEVOFLOXACIN 250MG PREMIX 50 ML IV SCH (00:13)
[2018-09-26 04:00] VITALS: BP 162/79
[2018-09-26] MEDS: SILDENAFIL CITRATE 20MG TABLET PO SCH ×3 (06:02→21:58)
[2018-09-26] MEDS: HYDRALAZINE HCL 50MG TABLET PO SCH ×3 (06:03→21:58)
[2018-09-26] MEDS: FUROSEMIDE 40MG TABLET PO SCH ×2 (06:23→17:36)
[2018-09-26] MEDS: ACETAMINOPHEN 325MG TABLET PO PRN ×2 (07:52→16:08)
[2018-09-26 08:00] VITALS: BP 166/66
[2018-09-26] MEDS: PANTOPRAZOLE SODIUM 40 MG/VIAL IV SCH ×2 (08:46→21:04)
[2018-09-26] MEDS: CARVEDILOL 6.25 MG TABLET PO SCH ×2 (08:46→21:05)
[2018-09-26] MEDS: ALLOPURINOL 100 MG TABLET PO SCH (08:46)
[2018-09-26 12:00] VITALS: BP 122/68
[2018-09-26 13:18] LABS: BASOPHILS % 0.6 % (0.0-2.0); EOSINOPHILS % 1.1 % (0.0-5.0); HEMATOCRIT. 26.9 % (36.0-48.0); HEMOGLOBIN. 8.7 g/dL (12.0-16.0); LYMPHOCYTES % 11.9 % (20.0-50.0); MEAN CORPUSCULAR HEMOGLOBIN 27.3 pg (28.0-32.0); MEAN CORPUSCULAR VOLUME 84.2 fL (81.0-99.0); MEAN PLATELET VOLUME 8.5 fl (7.4-10.4); MONOCYTES % 8.4 % (2.0-8.0); PLATELET 166 x1000/uL (130-400); RED CELL DISTRIBUTION WIDTH 20.3 % (11.6-14.6)
[2018-09-26 16:00] VITALS: BP 168/69
[2018-09-26 20:00] VITALS: BP 168/66
[2018-09-26] MEDS: TRAMADOL 50MG TABLET PO PRN (23:09)
[2018-09-27] VITALS: BP 156/57
[2018-09-27] MEDS: LORAZEPAM 2MG/ML CPJ IV PRN (00:27)
[2018-09-27 04:00] VITALS: BP 160/68
[2018-09-27] MEDS: HYDRALAZINE HCL 50MG TABLET PO SCH ×3 (05:37→22:14)
[2018-09-27] MEDS: SILDENAFIL CITRATE 20MG TABLET PO SCH ×3 (05:37→22:15)
[2018-09-27] MEDS: FUROSEMIDE 40MG TABLET PO SCH (06:35)
[2018-09-27 07:09] LABS: PARTIAL THROMBOPLASTIN TIME 34.1 sec (23.4-31.0); PROTHROMBIN TIME 9.9 sec (9.1-11.1)
[2018-09-27 07:21] LABS: BASOPHILS % 0.6 % (0.0-2.0); EOSINOPHILS % 1.6 % (0.0-5.0); HEMATOCRIT. 27.3 % (36.0-48.0); HEMOGLOBIN. 8.7 g/dL (12.0-16.0); LYMPHOCYTES % 17.6 % (20.0-50.0); MEAN CORPUSCULAR HEMOGLOBIN 26.9 pg (28.0-32.0); MEAN CORPUSCULAR VOLUME 84.9 fL (81.0-99.0); MEAN PLATELET VOLUME 8.6 fl (7.4-10.4); MONOCYTES % 7.4 % (2.0-8.0); NEUTROPHILS % 72.8 % (40.0-76.0); PLATELET 180 x1000/uL (130-400); RED BLOOD CELL COUNT 3.22 mill/uL (4.2-5.4)
[2018-09-27 08:00] VITALS: BP 143/71
[2018-09-27] MEDS: PANTOPRAZOLE SODIUM 40 MG/VIAL IV SCH ×2 (08:19→20:25)
[2018-09-27] MEDS: CARVEDILOL 6.25 MG TABLET PO SCH ×2 (08:19→20:26)
[2018-09-27] MEDS: ALLOPURINOL 100 MG TABLET PO SCH (08:20)
[2018-09-27 12:00] VITALS: BP 175/73
[2018-09-27] MEDS ORDERED: MIDAZOLAM HCL 5 MG/5 ML VIAL ONE (13:36)
[2018-09-27] MEDS ORDERED: FENTANYL CITRATE/PF 50MCG/ML 2ML VIAL ONE (13:37)
[2018-09-27] MEDS ORDERED: MIDAZOLAM HCL 5 MG/5 ML VIAL IV PRN (13:47)
[2018-09-27] MEDS ORDERED: SODIUM CHLORIDE 0.9% 10ML VIAL ONE (14:44)
[2018-09-27 16:00] VITALS: BP 143/71
[2018-09-27] MEDS: CLONIDINE 0.2MG TABLET PO PRN (19:01)
[2018-09-27 20:00] VITALS: BP 150/57
[2018-09-27] MEDS: LEVOFLOXACIN 250MG PREMIX 50 ML IV SCH (23:45)
[2018-09-28] VITALS: BP 152/54
[2018-09-28] MEDS: LORAZEPAM 2MG/ML CPJ IV PRN (01:03)
[2018-09-28 04:00] VITALS: BP 164/64
[2018-09-28] MEDS: SILDENAFIL CITRATE 20MG TABLET PO SCH ×3 (05:48→22:11)
[2018-09-28] MEDS: HYDRALAZINE HCL 50MG TABLET PO SCH ×3 (05:49→22:11)
[2018-09-28] MEDS: CARVEDILOL 6.25 MG TABLET PO SCH ×2 (08:51→21:47)
[2018-09-28] MEDS: TRAMADOL 50MG TABLET PO PRN (08:51)
[2018-09-28] MEDS: ALLOPURINOL 100 MG TABLET PO SCH (08:51)
[2018-09-28] MEDS: PANTOPRAZOLE SODIUM 40 MG/VIAL IV SCH ×2 (08:52→21:46)
[2018-09-28 12:00] VITALS: BP 165/67
[2018-09-28] MEDS: CLONIDINE 0.2MG TABLET PO PRN (14:16)
[2018-09-28] MEDS: HYDROCODONE/ACETAMINOPHEN 5/325MG TABLET PO PRN (15:21)
[2018-09-28 15:55] LABS: HEMATOCRIT 28.1 % (36.0-48.0); HEMOGLOBIN 8.9 g/dL (12.0-16.0); MEAN CORPUSCULAR HEMOGLOBIN 27.4 pg (28.0-32.0); MEAN CORPUSCULAR VOLUME 86.5 fL (81.0-99.0); PLATELET 168 x1000/uL (130-400); RED BLOOD CELL COUNT 3.24 mill/uL (4.2-5.4); RED CELL DISTRIBUTION WIDTH 21.1 % (11.6-14.6)
[2018-09-28 16:00] VITALS: BP 140/65
[2018-09-28] MEDS ORDERED: SORBITOL 70% SOLN 30ML PO NR (16:00)
[2018-09-28 20:00] VITALS: BP 144/72
[2018-09-28] MEDS: SORBITOL 70% SOLN 30ML PO NR ×2 (20:07→21:11)
[2018-09-29] VITALS (7 sets, daily range): BP systolic 106–186; BP diastolic 47–75
[2018-09-29 05:38] LABS: BASOPHILS % 1.1 % (0.0-2.0); EOSINOPHILS % 3.9 % (0.0-5.0); HEMATOCRIT. 26.3 % (36.0-48.0); HEMOGLOBIN. 8.3 g/dL (12.0-16.0); LYMPHOCYTES % 17.7 % (20.0-50.0); MEAN CORPUSCULAR HEMOGLOBIN 27.7 pg (28.0-32.0); MEAN CORPUSCULAR VOLUME 87.4 fL (81.0-99.0); MEAN PLATELET VOLUME 8.6 fl (7.4-10.4); MONOCYTES % 8.7 % (2.0-8.0); NEUTROPHILS % 68.6 % (40.0-76.0); PLATELET 143 x1000/uL (130-400); RED BLOOD CELL COUNT 3.01 mill/uL (4.2-5.4); RED CELL DISTRIBUTION WIDTH 20.6 % (11.6-14.6)
[2018-09-29 05:42] LABS: PARTIAL THROMBOPLASTIN TIME 32.7 sec (23.4-31.0)
[2018-09-29 05:51] LABS: CHLORIDE 119 mEq/L (98-107)
[2018-09-29 06:01] LABS: PHOSPHORUS 4.4 mg/dL (2.5-4.9)
[2018-09-29] MEDS: HYDRALAZINE HCL 50MG TABLET PO SCH ×3 (06:25→20:34)
[2018-09-29] MEDS: SILDENAFIL CITRATE 20MG TABLET PO SCH ×3 (06:26→20:33)
[2018-09-29] MEDS: HYDROCODONE/ACETAMINOPHEN 5/325MG TABLET PO PRN ×2 (06:56→20:33)
[2018-09-29] MEDS: CARVEDILOL 6.25 MG TABLET PO SCH ×3 (09:00→20:33)
[2018-09-29] MEDS: ALLOPURINOL 100 MG TABLET PO SCH ×2 (09:00→09:16)
[2018-09-29] MEDS: PANTOPRAZOLE SODIUM 40 MG/VIAL IV SCH ×2 (09:16→20:32)
[2018-09-29] MEDS: SODIUM CHLORIDE 0.9% 1,000 ML IV SCH ×2 (09:30→19:15)
[2018-09-29] MEDS ORDERED: SODIUM CHLORIDE 0.9% 10ML VIAL ONE (15:07)
[2018-09-29] MEDS ORDERED: SIMETHICONE 40 MG/0.6 ML 30ML ONE (16:17)
[2018-09-29] MEDS ORDERED: MIDAZOLAM HCL 5 MG/5 ML VIAL ONE (16:18)
[2018-09-29] MEDS ORDERED: FENTANYL CITRATE/PF 50MCG/ML 2ML VIAL ONE (16:19)
[2018-09-29] MEDS ORDERED: MIDAZOLAM HCL 5 MG/5 ML VIAL IV PRN (16:20)
[2018-09-30] VITALS (14 sets, daily range): BP systolic 133–200; BP diastolic 62–89
[2018-09-30] MEDS: CLONIDINE 0.2MG TABLET PO PRN ×2 (00:08→18:48)
[2018-09-30] MEDS: LEVOFLOXACIN 250MG PREMIX 50 ML IV SCH (00:08)
[2018-09-30] MEDS: SILDENAFIL CITRATE 20MG TABLET PO SCH ×3 (05:53→21:06)
[2018-09-30] MEDS: HYDRALAZINE HCL 50MG TABLET PO SCH ×3 (05:53→21:06)
[2018-09-30 07:38] LABS: BASOPHILS % 1.3 % (0.0-2.0); EOSINOPHILS % 8.2 % (0.0-5.0); HEMOGLOBIN. 7.7 g/dL (12.0-16.0); LYMPHOCYTES % 25.1 % (20.0-50.0); MEAN CORPUSCULAR HEMOGLOBIN 27.9 pg (28.0-32.0); MEAN CORPUSCULAR VOLUME 87.4 fL (81.0-99.0); MEAN PLATELET VOLUME 8.8 fl (7.4-10.4); MONOCYTES % 8.8 % (2.0-8.0); NEUTROPHILS % 56.6 % (40.0-76.0); PLATELET 140 x1000/uL (130-400); RED BLOOD CELL COUNT 2.74 mill/uL (4.2-5.4); RED CELL DISTRIBUTION WIDTH 21.2 % (11.6-14.6)
[2018-09-30] MEDS: CARVEDILOL 6.25 MG TABLET PO SCH ×2 (08:50→20:34)
[2018-09-30] MEDS: ALLOPURINOL 100 MG TABLET PO SCH (08:50)
[2018-09-30] MEDS: FUROSEMIDE 40MG TABLET PO SCH ×2 (08:50→17:44)
[2018-09-30] MEDS: FERROUS SULFATE 325MG TABLET PO SCH ×3 (08:50→17:44)
[2018-09-30] MEDS: PANTOPRAZOLE SODIUM 40 MG/VIAL IV SCH ×2 (08:50→20:34)
[2018-09-30] MEDS: HYDROCODONE/ACETAMINOPHEN 5/325MG TABLET PO PRN (16:04)
[2018-10-01] MEDS: CLONIDINE 0.2MG TABLET PO PRN (00:57)
[2018-10-01 01:07] LABS: HEMOGLOBIN 9.3 g/dL (12.0-16.0)
[2018-10-01 04:00] VITALS: BP 166/70
[2018-10-01] MEDS: HYDRALAZINE HCL 50MG TABLET PO SCH ×2 (05:21→14:58)
[2018-10-01] MEDS: SILDENAFIL CITRATE 20MG TABLET PO SCH ×2 (05:21→14:58)
[2018-10-01 07:23] LABS: EOSINOPHILS % 7.6 % (0.0-5.0); HEMATOCRIT. 27.8 % (36.0-48.0); HEMOGLOBIN. 9.1 g/dL (12.0-16.0); LYMPHOCYTES % 20.9 % (20.0-50.0); MEAN CORPUSCULAR HEMOGLOBIN 28.7 pg (28.0-32.0); MEAN CORPUSCULAR VOLUME 87.5 fL (81.0-99.0); MEAN PLATELET VOLUME 8.5 fl (7.4-10.4); MONOCYTES % 11.5 % (2.0-8.0); PLATELET 127 x1000/uL (130-400); RED BLOOD CELL COUNT 3.18 mill/uL (4.2-5.4); RED CELL DISTRIBUTION WIDTH 19.9 % (11.6-14.6)
[2018-10-01 08:00] VITALS: BP 158/76
[2018-10-01] MEDS: FERROUS SULFATE 325MG TABLET PO SCH ×2 (09:23→14:59)
[2018-10-01] MEDS: ALLOPURINOL 100 MG TABLET PO SCH (09:23)
[2018-10-01] MEDS: PANTOPRAZOLE SODIUM 40 MG/VIAL IV SCH (09:23)
[2018-10-01] MEDS: FUROSEMIDE 40MG TABLET PO SCH (09:23)
[2018-10-01] MEDS: CARVEDILOL 6.25 MG TABLET PO SCH (09:23)
[2018-10-01 12:00] VITALS: BP 145/69
[2018-10-01] MEDS ORDERED: SODIUM POLYSTYRENE SULFONATE 15 G/60 ML BOT PO NR (12:00)
[2018-10-01 15:35] VITALS: BP 145/69
[2018-10-02] MEDS ORDERED: LEVOFLOXACIN 250MG TABLET PO SCH (23:00)
== END 2018-10-01 16:15 | disposition home or self-care (01) | DRG 377 ==
LOC: ER 19:34 → 5WST 23:35 → EDBEDREQ 23:37 → ENRESERV 09-24 10:20 → ER 09-24 10:34
PROVIDERS: ADMIT Internal Medicine Nephrology; ATTEND Internal Medicine Nephrology
PROC: 30233N1 Transfusion of Nonautologous Red Blood Cells into Peripheral Vein, Percutaneous Approach (ICD-10-PCS; 2018-09-24)
PROC: 0DB78ZX Excision of Stomach, Pylorus, Via Natural or Artificial Opening Endoscopic, Diagnostic (ICD-10-PCS; principal; 2018-09-27 14:00)
PROC: 0DBN8ZZ Excision of Sigmoid Colon, Via Natural or Artificial Opening Endoscopic (ICD-10-PCS; 2018-09-29)
DX: K57.31 Diverticulosis of large intestine without perforation or abscess with bleeding (principal); E43 Unspecified severe protein-calorie malnutrition; K76.7 Hepatorenal syndrome; K76.6 Portal hypertension; I13.0 Hypertensive heart and chronic kidney disease with heart failure and stage 1 through stage 4 chronic kidney disease, or unspecified chronic kidney disease; N17.9 Acute kidney failure, unspecified; N18.4 Chronic kidney disease, stage 4 (severe); J98.11 Atelectasis; D62 Acute posthemorrhagic anemia; K29.61 Other gastritis with bleeding; K70.31 Alcoholic cirrhosis of liver with ascites; E87.5 Hyperkalemia; F50.89 Other specified eating disorder; D63.8 Anemia in other chronic diseases classified elsewhere; B18.2 Chronic viral hepatitis C; D12.5 Benign neoplasm of sigmoid colon; G62.9 Polyneuropathy, unspecified; I27.20 Pulmonary hypertension, unspecified; M10.9 Gout, unspecified; I50.9 Heart failure, unspecified; F17.200 Nicotine dependence, unspecified, uncomplicated; F10.21 Alcohol dependence, in remission; J44.9 Chronic obstructive pulmonary disease, unspecified; R73.9 Hyperglycemia, unspecified; K44.9 Diaphragmatic hernia without obstruction or gangrene; K64.8 Other hemorrhoids; K59.00 Constipation, unspecified; Z90.710 Acquired absence of both cervix and uterus; Z88.1 Allergy status to other antibiotic agents; Z79.899 Other long term (current) drug therapy; Z68.22 Body mass index [BMI] 22.0-22.9, adult; Z76.82 Awaiting organ transplant status
CPT/HCPCS: 36415; 36430; 71045; 80048; 80076; 82248; 82270; 82728; 83540; 83550; 83735; 83880; 84100; 84484; 85014; 85018; 85027; 86850; 86900; 86920; 88305; 88312; 88313; 92523; 93005; 94640; 97162; 97166; 97530; 97535; 99152; 99285; A4216; C9113; J1956; J2060; J2250; J3010; J7030; J7040; J7050; J7512; J7611; P9016; G0500

== ENCOUNTER → 2018-10-23 | Day surgery (SDC) | payer MEDICARE, MEDICAID ==
[~2018-10-23] MED LIST changes: -HYDR-2510 PO; +HYDR-4135 PO; +LIDOCAINE HCL 1% 20ML VIAL (Pyxis) INJ ONE; +SODIUM BICARBONATE 4% (2.4MEQ) 5ML VIAL IV ONE
== END | disposition home or self-care (01) ==
LOC: RAD 10:28
PROVIDERS: ATTEND Internal Medicine Nephrology
DX: R18.8 Other ascites (principal)
CPT/HCPCS: 49083; J3490

== ENCOUNTER → 2018-11-18 | Day surgery (SDC) | payer MEDICARE, MEDICAID | END | disposition home or self-care (01) | LOC: RAD 12:29 | PROVIDERS: ATTEND Internal Medicine Nephrology | DX: K70.31 Alcoholic cirrhosis of liver with ascites (principal) | CPT/HCPCS: 49083; 84157; 89050; C1729; J3490 ==

== ENCOUNTER 2019-01-12 20:59 | Inpatient (IN) | payer MEDICARE, MEDICAID ==
[~2019-01-12] VITALS: Ht 165.1 cm; Wt 56.7 kg
[~2019-01-12 20:59] MED LIST changes: -LIDOCAINE HCL 1% 20ML VIAL (Pyxis) INJ ONE; -SODIUM BICARBONATE 4% (2.4MEQ) 5ML VIAL IV ONE
[2019-01-12 21:50] VITALS: BP 186/74
[2019-01-12] MEDS ORDERED: ONDANSETRON HCL 4MG/2ML INJ IV PRN (22:30)
[2019-01-12] MEDS ORDERED: DIPHENHYDRAMINE 50MG/ML VIAL IV PRN (22:30)
[2019-01-12] MEDS ORDERED: IPRATROPIUM/ALBUTEROL 0.5-3(2.5)MG/3ML NEB HHN PRN (23:00)
[2019-01-12] MEDS: METOPROLOL TARTRATE 50MG TABLET PO SCH (23:14)
[2019-01-12] MEDS: CLONIDINE 0.1MG TABLET PO PRN (23:14)
[2019-01-13] VITALS (17 sets, daily range): BP systolic 122–184; BP diastolic 61–79
[2019-01-13 00:35] LABS: BASOPHILS % 1.3 % (0.0-2.0); EOSINOPHILS % 6.3 % (0.0-5.0); LYMPHOCYTES % 28.1 % (20.0-50.0); MEAN CORPUSCULAR HEMOGLOBIN 26.5 pg (28.0-32.0); MEAN PLATELET VOLUME 8.2 fl (7.4-10.4); MONOCYTES % 7.8 % (2.0-8.0); NEUTROPHILS % 56.5 % (40.0-76.0); PLATELET 149 x1000/uL (130-400); RED CELL DISTRIBUTION WIDTH 18.4 % (11.6-14.6)
[2019-01-13 00:37] LABS: CHLORIDE 114 mEq/L (98-107)
[2019-01-13 00:38] LABS: HEMATOCRIT. 14.6 % (36.0-48.0); HEMOGLOBIN. 4.5 g/dL (12.0-16.0)
[2019-01-13 00:41] LABS: PARTIAL THROMBOPLASTIN TIME 28.9 sec (23.4-31.0); PROTHROMBIN TIME 10.1 sec (9.1-11.1)
[2019-01-13] MEDS: PANTOPRAZOLE 40MG DR TABLET PO SCH (07:40)
[2019-01-13] MEDS: METOPROLOL TARTRATE 50MG TABLET PO SCH ×2 (09:00→20:55)
[2019-01-13] MEDS: FUROSEMIDE 40MG/4ML VIAL IVP SCH (09:00)
[2019-01-13] MEDS ORDERED: MAGNESIUM/ALUMINUM HYDROXIDE/SIMETHICONE 30ML UDC PO PRN (19:15)
[2019-01-13 20:55] LABS: HEMATOCRIT 21.3 % (36.0-48.0)
[2019-01-13] MEDS: AMLODIPINE 5MG TABLET PO SCH (22:16)
[2019-01-14] VITALS (19 sets, daily range): BP systolic 132–201; BP diastolic 65–87
[2019-01-14 00:10] LABS: PHOSPHORUS 5.3 mg/dL (2.5-4.9)
[2019-01-14 02:49] LABS: CLARITY URINE CLEAR (CLEAR); COLOR URINE YELLOW (YELLOW); KETONES URINE NEGATIVE (NEGATIVE); LEUKOCYTE ESTERASE URINE NEGATIVE (NEGATIVE); NITRITE URINE NEGATIVE (NEGATIVE); OCCULT BLOOD URINE TRACE (NEGATIVE); PROTEIN URINE 3+ (NEGATIVE); SPECIFIC GRAVITY URINE 1.018 (1.005-1.030); UROBILINOGEN URINE 0.2 E.U./dL (0.2-1.0)
[2019-01-14] MEDS: PANTOPRAZOLE 40MG DR TABLET PO SCH (07:40)
[2019-01-14] MEDS: FUROSEMIDE 40MG/4ML VIAL IVP SCH (08:49)
[2019-01-14] MEDS: AMLODIPINE 5MG TABLET PO SCH ×2 (08:52→10:32)
[2019-01-14] MEDS: METOPROLOL TARTRATE 50MG TABLET PO SCH ×3 (08:52→21:47)
[2019-01-14] MEDS ORDERED: ENOXAPARIN 30MG/0.3ML SYR SUBCUT SCH (09:00)
[2019-01-14 09:56] LABS: HEMATOCRIT 27.1 % (36.0-48.0)
[2019-01-14 10:01] LABS: PROTHROMBIN TIME 10.3 sec (9.1-11.1)
[2019-01-14] MEDS ORDERED: LIDOCAINE HCL 1% 20ML VIAL (Pyxis) INJ ONE (10:13)
[2019-01-14] MEDS ORDERED: SODIUM BICARBONATE 4% (2.4MEQ) 5ML VIAL IV ONE (10:13)
[2019-01-14 10:19] LABS: BASOPHILS % 0.9 % (0.0-2.0); HEMATOCRIT. 27.2 % (36.0-48.0); HEMOGLOBIN. 8.9 g/dL (12.0-16.0); LYMPHOCYTES % 21.6 % (20.0-50.0); MEAN CORPUSCULAR HEMOGLOBIN 28.7 pg (28.0-32.0); MEAN CORPUSCULAR VOLUME 87.5 fL (81.0-99.0); MEAN PLATELET VOLUME 8.6 fl (7.4-10.4); MONOCYTES % 10.4 % (2.0-8.0); NEUTROPHILS % 62.1 % (40.0-76.0); PLATELET 129 x1000/uL (130-400); RED CELL DISTRIBUTION WIDTH 17.3 % (11.6-14.6)
[2019-01-14 10:31] LABS: CHLORIDE 118 mEq/L (98-107)
[2019-01-14] MEDS: CLONIDINE 0.1MG TABLET PO PRN ×2 (10:32→23:55)
[2019-01-14 10:37] LABS: PHOSPHORUS 4.8 mg/dL (2.5-4.9)
[2019-01-14] MEDS ORDERED: FENTANYL CITRATE/PF 50MCG/ML 2ML VIAL IV ONE (10:45)
[2019-01-14] MEDS ORDERED: CEFAZOLIN 1000MG PREMIX 50 ML IV ONE ×2 (10:50)
[2019-01-14] MEDS ORDERED: FENTANYL CITRATE/PF 50MCG/ML 2ML VIAL ONE (10:51)
[2019-01-14 11:01] LABS: HEPATITIS B SURFACE ANTIGEN NEGATIVE
[2019-01-14] MEDS ORDERED: HEPARIN 100 UNITS/1 ML VIAL IVF PRN (11:15)
[2019-01-14 11:31] LABS: HEPATITIS A AB IGM NEGATIVE (NEGATIVE)
[2019-01-14] MEDS: HYDROCODONE/ACETAMINOPHEN 5/325MG TABLET PO PRN ×2 (13:43→23:54)
[2019-01-15] VITALS: BP 177/85
[2019-01-15 02:00] VITALS: BP 162/74
[2019-01-15 04:00] VITALS: BP 156/76
[2019-01-15 07:18] LABS: BASOPHILS % 1.1 % (0.0-2.0); EOSINOPHILS % 6.9 % (0.0-5.0); HEMOGLOBIN. 8.6 g/dL (12.0-16.0); LYMPHOCYTES % 26.1 % (20.0-50.0); MEAN CORPUSCULAR HEMOGLOBIN 28.8 pg (28.0-32.0); MEAN CORPUSCULAR VOLUME 87.4 fL (81.0-99.0); MEAN PLATELET VOLUME 8.8 fl (7.4-10.4); MONOCYTES % 9.8 % (2.0-8.0); NEUTROPHILS % 56.1 % (40.0-76.0); PLATELET 88 x1000/uL (130-400); RED BLOOD CELL COUNT 2.97 mill/uL (4.2-5.4); RED CELL DISTRIBUTION WIDTH 17.6 % (11.6-14.6)
[2019-01-15 08:00] VITALS: BP 156/70
[2019-01-15] MEDS: METOPROLOL TARTRATE 50MG TABLET PO SCH (08:40)
[2019-01-15] MEDS: PANTOPRAZOLE 40MG DR TABLET PO SCH (08:41)
[2019-01-15] MEDS: AMLODIPINE 5MG TABLET PO SCH (08:41)
[2019-01-15 12:20] VITALS: BP 156/70
[2019-01-15] MEDS: CLONIDINE 0.1MG TABLET PO PRN (12:58)
== END 2019-01-15 13:15 | disposition home or self-care (01) | DRG 432 ==
LOC: 7WST 20:59
PROVIDERS: ADMIT Internal Medicine Nephrology; ATTEND Internal Medicine Nephrology
PROC: 0W9G3ZZ Drainage of Peritoneal Cavity, Percutaneous Approach (ICD-10-PCS; principal; 2019-01-13)
PROC: 30233N1 Transfusion of Nonautologous Red Blood Cells into Peripheral Vein, Percutaneous Approach (ICD-10-PCS; 2019-01-13)
PROC: 0JH63XZ Insertion of Tunneled Vascular Access Device into Chest Subcutaneous Tissue and Fascia, Percutaneous Approach (ICD-10-PCS; 2019-01-14)
PROC: 02HV33Z Insertion of Infusion Device into Superior Vena Cava, Percutaneous Approach (ICD-10-PCS; 2019-01-14)
PROC: B518ZZA Fluoroscopy of Superior Vena Cava, Guidance (ICD-10-PCS; 2019-01-14)
PROC: B548ZZA Ultrasonography of Superior Vena Cava, Guidance (ICD-10-PCS; 2019-01-14)
PROC: 5A1D70Z Performance of Urinary Filtration, Intermittent, Less than 6 Hours Per Day (ICD-10-PCS; 2019-01-14)
DX: K70.31 Alcoholic cirrhosis of liver with ascites (principal); N18.6 End stage renal disease; E43 Unspecified severe protein-calorie malnutrition; K92.2 Gastrointestinal hemorrhage, unspecified; I13.2 Hypertensive heart and chronic kidney disease with heart failure and with stage 5 chronic kidney disease, or end stage renal disease; D50.0 Iron deficiency anemia secondary to blood loss (chronic); D63.8 Anemia in other chronic diseases classified elsewhere; F17.200 Nicotine dependence, unspecified, uncomplicated; I50.9 Heart failure, unspecified; Z99.2 Dependence on renal dialysis; Z68.20 Body mass index [BMI] 20.0-20.9, adult
CPT/HCPCS: 36415; 36558; 49083; 71046; 76705; 76937; 77001; 80048; 80076; 83540; 83550; 83735; 84100; 85014; 85018; 85049; 85384; 86705; 86706; 86709; 86803; 86850; 86900; 86920; 87340; 93970; 99152; 99153; C1750; C1769; C1887; J0690; J1200; J1642; J1940; J3010; J3490; J7040; J7050; P9016; G0500

== ENCOUNTER 2019-02-04 20:00 | Inpatient (IN) | payer MEDICARE, MEDICAID ==
[~2019-02-04] VITALS: Ht 165.1 cm; Wt 54.9 kg
[~2019-02-04 20:00] MED LIST changes: -ALBU18HF2 IH
[2019-02-04] MEDS ORDERED: CLONIDINE 0.1MG TABLET PO ONE (21:15)
[2019-02-04 22:56] LABS: CHLORIDE 108 mEq/L (98-107)
[2019-02-04 22:57] LABS: PROTHROMBIN TIME 10.2 sec (9.6-11.0)
[2019-02-04 22:58] LABS: BASOPHILS % 1.1 % (0.0-2.0); EOSINOPHILS % 5.7 % (0.0-5.0); HEMATOCRIT. 23.9 % (36.0-48.0); HEMOGLOBIN. 7.7 g/dL (12.0-16.0); LYMPHOCYTES % 18.1 % (20.0-50.0); MEAN CORPUSCULAR HEMOGLOBIN 30.7 pg (28.0-32.0); MEAN CORPUSCULAR VOLUME 95.8 fL (81.0-99.0); MEAN PLATELET VOLUME 8.3 fl (7.4-10.4); MONOCYTES % 8.9 % (2.0-8.0); NEUTROPHILS % 66.2 % (40.0-76.0); PLATELET 131 x1000/uL (130-400); RED CELL DISTRIBUTION WIDTH 24.3 % (11.6-14.6)
[2019-02-04 23:15] LABS: PLATELET ESTIMATE NORMAL
[2019-02-04] MEDS ORDERED: CLONIDINE 0.2MG TABLET PO NR (23:30)
[2019-02-05] MEDS: METOPROLOL TARTRATE 50MG TABLET PO SCH ×2 (09:02→21:24)
[2019-02-05] MEDS: ENOXAPARIN 30MG/0.3ML SYR SUBCUT SCH (09:06)
[2019-02-05 13:00] VITALS: BP 165/86
[2019-02-05 16:00] VITALS: BP 178/75
[2019-02-05 20:00] VITALS: BP 173/79
[2019-02-06] VITALS (16 sets, daily range): BP systolic 156–202; BP diastolic 72–105
[2019-02-06] MEDS ORDERED: FUROSEMIDE 100MG/10ML VIAL IVP NR (01:45)
[2019-02-06] MEDS: CLONIDINE 0.1MG TABLET PO PRN ×3 (02:27→18:18)
[2019-02-06 06:18] LABS: BASOPHILS % 1.2 % (0.0-2.0); EOSINOPHILS % 7.8 % (0.0-5.0); HEMATOCRIT. 21.4 % (36.0-48.0); LYMPHOCYTES % 32.2 % (20.0-50.0); MEAN CORPUSCULAR HEMOGLOBIN 30.6 pg (28.0-32.0); MEAN CORPUSCULAR VOLUME 95.4 fL (81.0-99.0); MEAN PLATELET VOLUME 8.9 fl (7.4-10.4); NEUTROPHILS % 47.8 % (40.0-76.0); PLATELET 120 x1000/uL (130-400); RED BLOOD CELL COUNT 2.24 mill/uL (4.2-5.4); RED CELL DISTRIBUTION WIDTH 24.2 % (11.6-14.6)
[2019-02-06 06:40] LABS: HEMOGLOBIN. 6.9 g/dL (12.0-16.0)
[2019-02-06] MEDS ORDERED: LIDOCAINE HCL 1% 20ML VIAL (Pyxis) INJ ONE (07:37)
[2019-02-06] MEDS ORDERED: SODIUM BICARBONATE 4% (2.4MEQ) 5ML VIAL IV ONE (07:37)
[2019-02-06] MEDS: ENOXAPARIN 30MG/0.3ML SYR SUBCUT SCH (08:23)
[2019-02-06] MEDS: METOPROLOL TARTRATE 50MG TABLET PO SCH (09:00)
[2019-02-06] MEDS ORDERED: METOPROLOL TARTRATE 50MG TABLET PO SCH (16:45)
== END 2019-02-06 20:20 | disposition home or self-care (01) | DRG 291 ==
LOC: ER 20:00 → 7WST 02-05 01:19 → ENRESERV 02-05 10:00
PROVIDERS: ADMIT Internal Medicine Nephrology; ATTEND Internal Medicine Nephrology
PROC: 30233N1 Transfusion of Nonautologous Red Blood Cells into Peripheral Vein, Percutaneous Approach (ICD-10-PCS; principal; 2019-02-06)
PROC: 0W9G3ZZ Drainage of Peritoneal Cavity, Percutaneous Approach (ICD-10-PCS; 2019-02-06)
DX: I13.2 Hypertensive heart and chronic kidney disease with heart failure and with stage 5 chronic kidney disease, or end stage renal disease (principal); E43 Unspecified severe protein-calorie malnutrition; N18.6 End stage renal disease; F17.200 Nicotine dependence, unspecified, uncomplicated; G89.29 Other chronic pain; I50.9 Heart failure, unspecified; J44.9 Chronic obstructive pulmonary disease, unspecified; K74.60 Unspecified cirrhosis of liver; D63.1 Anemia in chronic kidney disease; Z90.710 Acquired absence of both cervix and uterus; Z99.2 Dependence on renal dialysis; Z68.20 Body mass index [BMI] 20.0-20.9, adult; Z88.1 Allergy status to other antibiotic agents; Z79.899 Other long term (current) drug therapy
CPT/HCPCS: 36415; 49083; 71045; 80048; 86850; 86900; 86920; 93005; 99291; J1650; J1940; J3490; J7050; P9016; P9021

== ENCOUNTER 2019-03-22 16:21 | Inpatient (IN) | payer MEDICARE, MEDICAID ==
[~2019-03-22] VITALS: Ht 165.1 cm; Wt 45.4 kg
[2019-03-22] MEDS ORDERED: ONDANSETRON HCL 4MG/2ML INJ IV STA (18:22)
[2019-03-22 18:55] LABS: BASOPHILS % 1.3 % (0.0-2.0); EOSINOPHILS % 5.9 % (0.0-5.0); LYMPHOCYTES % 25.2 % (20.0-50.0); MEAN CORPUSCULAR HEMOGLOBIN 34.1 pg (28.0-32.0); MEAN CORPUSCULAR VOLUME 101.2 fL (81.0-99.0); MEAN PLATELET VOLUME 8.4 fl (7.4-10.4); MONOCYTES % 9.3 % (2.0-8.0); NEUTROPHILS % 58.3 % (40.0-76.0); PLATELET 138 x1000/uL (130-400); RED BLOOD CELL COUNT 2.01 mill/uL (4.2-5.4); RED CELL DISTRIBUTION WIDTH 15.3 % (11.6-14.6)
[2019-03-22 18:57] LABS: CHLORIDE 113 mEq/L (98-107)
[2019-03-22 19:01] LABS: HEMATOCRIT. 20.4 % (36.0-48.0); HEMOGLOBIN. 6.9 g/dL (12.0-16.0)
[2019-03-22] MEDS ORDERED: LORAZEPAM 2MG/ML CPJ IV PRN (21:45)
[2019-03-22] MEDS ORDERED: LISINOPRIL 10MG TABLET PO SCH (21:45)
[2019-03-22] MEDS ORDERED: DOCUSATE SODIUM 100MG CAPSULE PO PRN (21:45)
[2019-03-22] MEDS ORDERED: ONDANSETRON HCL 4MG/2ML INJ IV PRN (21:45)
[2019-03-23] VITALS (15 sets, daily range): BP systolic 154–198; BP diastolic 56–87
[2019-03-23] MEDS: CLONIDINE 0.1MG TABLET PO PRN (00:31)
[2019-03-23] MEDS: LISINOPRIL 40MG TABLET PO SCH ×2 (00:31→09:30)
[2019-03-23] MEDS: HYDROCODONE/ACETAMINOPHEN 5/325MG TABLET PO PRN ×2 (00:36→10:03)
[2019-03-23 02:55] LABS: HEMOGLOBIN 7.1 g/dL (12.0-16.0)
[2019-03-23 02:59] LABS: HEMATOCRIT 20.4 % (36.0-48.0)
[2019-03-23 09:21] LABS: HEMATOCRIT 25.4 % (36.0-48.0); HEMOGLOBIN 8.6 g/dL (12.0-16.0)
[2019-03-23] MEDS: FOLIC ACID 1MG TABLET PO SCH (09:30)
[2019-03-23] MEDS: MULTIVITAMINS,THER W-MINERALS TABLET PO SCH (09:30)
[2019-03-23 10:36] LABS: PHOSPHORUS 4.5 mg/dL (2.5-4.9)
[2019-03-23 12:50] LABS: PROTHROMBIN TIME 10.5 sec (9.6-11.0)
[2019-03-23] MEDS ORDERED: FUROSEMIDE 40MG TABLET PO SCH (17:15)
[2019-03-23] MEDS: CARVEDILOL 6.25 MG TABLET PO SCH (19:15)
[2019-03-23] MEDS: HYDRALAZINE HCL 50MG TABLET PO SCH (22:00)
[2019-03-24] VITALS (8 sets, daily range): BP systolic 130–207; BP diastolic 56–89
[2019-03-24] MEDS: LISINOPRIL 40MG TABLET PO SCH ×3 (00:13→21:25)
[2019-03-24] MEDS: HYDROCODONE/ACETAMINOPHEN 5/325MG TABLET PO PRN (00:13)
[2019-03-24] MEDS: HYDRALAZINE HCL 50MG TABLET PO SCH ×3 (06:13→21:25)
[2019-03-24] MEDS: CLONIDINE 0.1MG TABLET PO PRN (06:14)
[2019-03-24] MEDS: MULTIVITAMINS,THER W-MINERALS TABLET PO SCH (08:51)
[2019-03-24] MEDS: CARVEDILOL 6.25 MG TABLET PO SCH ×2 (08:51→17:41)
[2019-03-24] MEDS: ALLOPURINOL 100 MG TABLET PO SCH (08:51)
[2019-03-24] MEDS: FOLIC ACID 1MG TABLET PO SCH (08:51)
[2019-03-24] MEDS ORDERED: SILDENAFIL CITRATE 20MG TABLET PO SCH (09:00)
[2019-03-24 09:19] LABS: BASOPHILS % 0.9 % (0.0-2.0); HEMATOCRIT. 29.2 % (36.0-48.0); LYMPHOCYTES % 14.7 % (20.0-50.0); MEAN CORPUSCULAR HEMOGLOBIN 32.1 pg (28.0-32.0); MEAN CORPUSCULAR VOLUME 94.2 fL (81.0-99.0); MEAN PLATELET VOLUME 8.4 fl (7.4-10.4); MONOCYTES % 11.9 % (2.0-8.0); NEUTROPHILS % 65.5 % (40.0-76.0); PLATELET 96 x1000/uL (130-400); RED CELL DISTRIBUTION WIDTH 17.8 % (11.6-14.6)
[2019-03-24] MEDS: FERROUS SULFATE 325MG TABLET PO SCH ×2 (13:50→17:41)
[2019-03-24] MEDS: DOCUSATE SODIUM 100MG CAPSULE PO SCH (17:41)
[2019-03-25] VITALS: BP 166/88
[2019-03-25] MEDS: CLONIDINE 0.1MG TABLET PO PRN (00:17)
[2019-03-25] MEDS: HYDROCODONE/ACETAMINOPHEN 5/325MG TABLET PO PRN ×2 (00:18→20:19)
[2019-03-25 04:00] VITALS: BP 166/57
[2019-03-25] MEDS: HYDRALAZINE HCL 50MG TABLET PO SCH ×3 (05:42→21:28)
[2019-03-25 06:15] LABS: EOSINOPHILS % 7.8 % (0.0-5.0); HEMATOCRIT. 25.8 % (36.0-48.0); HEMOGLOBIN. 8.9 g/dL (12.0-16.0); LYMPHOCYTES % 27.1 % (20.0-50.0); MEAN CORPUSCULAR HEMOGLOBIN 32.3 pg (28.0-32.0); MEAN CORPUSCULAR VOLUME 94.3 fL (81.0-99.0); MEAN PLATELET VOLUME 9.3 fl (7.4-10.4); MONOCYTES % 7.7 % (2.0-8.0); NEUTROPHILS % 56.4 % (40.0-76.0); PLATELET 99 x1000/uL (130-400); RED BLOOD CELL COUNT 2.74 mill/uL (4.2-5.4); RED CELL DISTRIBUTION WIDTH 17.4 % (11.6-14.6)
[2019-03-25 08:00] VITALS: BP 166/68
[2019-03-25] MEDS: MULTIVITAMINS,THER W-MINERALS TABLET PO SCH (09:13)
[2019-03-25] MEDS: CARVEDILOL 6.25 MG TABLET PO SCH ×2 (09:13→17:25)
[2019-03-25] MEDS: DOCUSATE SODIUM 100MG CAPSULE PO SCH ×2 (09:13→17:25)
[2019-03-25] MEDS: FERROUS SULFATE 325MG TABLET PO SCH ×3 (09:13→17:25)
[2019-03-25] MEDS: ALLOPURINOL 100 MG TABLET PO SCH (09:14)
[2019-03-25] MEDS: LISINOPRIL 40MG TABLET PO SCH ×2 (09:14→21:29)
[2019-03-25] MEDS: FOLIC ACID 1MG TABLET PO SCH (09:14)
[2019-03-25] MEDS: IPRATROPIUM/ALBUTEROL 0.5-3(2.5)MG/3ML NEB INH PRN ×2 (09:21→22:08)
[2019-03-25 12:00] VITALS: BP 155/68
[2019-03-25 12:16] LABS: HEMOGLOBIN 9.1 g/dL (12.0-16.0); MEAN CORPUSCULAR VOLUME 94.8 fL (81.0-99.0); PLATELET 100 x1000/uL (130-400); RED BLOOD CELL COUNT 2.85 mill/uL (4.2-5.4); RED CELL DISTRIBUTION WIDTH 17.2 % (11.6-14.6)
[2019-03-25 16:00] VITALS: BP 164/74
[2019-03-25 20:00] VITALS: BP 166/64
[2019-03-25] MEDS ORDERED: EPOETIN ALFA 10000UNITS/ML VIAL SUBCUT SCH (21:00)
[2019-03-25] MEDS: FUROSEMIDE 40MG TABLET PO SCH (21:28)
[2019-03-26] VITALS: BP 178/78
[2019-03-26] MEDS: CLONIDINE 0.1MG TABLET PO PRN ×2 (00:22→08:47)
[2019-03-26 04:00] VITALS: BP 156/63
[2019-03-26] MEDS: HYDRALAZINE HCL 50MG TABLET PO SCH ×3 (05:59→14:49)
[2019-03-26 07:24] LABS: BASOPHILS % 1.3 % (0.0-2.0); EOSINOPHILS % 9.3 % (0.0-5.0); HEMATOCRIT. 26.7 % (36.0-48.0); HEMOGLOBIN. 9.1 g/dL (12.0-16.0); LYMPHOCYTES % 22.9 % (20.0-50.0); MEAN CORPUSCULAR HEMOGLOBIN 32.6 pg (28.0-32.0); MEAN CORPUSCULAR VOLUME 95.9 fL (81.0-99.0); MEAN PLATELET VOLUME 9.3 fl (7.4-10.4); NEUTROPHILS % 57.5 % (40.0-76.0); PLATELET 101 x1000/uL (130-400); RED BLOOD CELL COUNT 2.79 mill/uL (4.2-5.4); RED CELL DISTRIBUTION WIDTH 17.1 % (11.6-14.6)
[2019-03-26 08:08] VITALS: BP 173/76
[2019-03-26] MEDS: DOCUSATE SODIUM 100MG CAPSULE PO SCH (08:47)
[2019-03-26] MEDS: FERROUS SULFATE 325MG TABLET PO SCH ×2 (08:47→14:49)
[2019-03-26] MEDS: FUROSEMIDE 40MG TABLET PO SCH (08:47)
[2019-03-26] MEDS: MULTIVITAMINS,THER W-MINERALS TABLET PO SCH (08:47)
[2019-03-26] MEDS: FOLIC ACID 1MG TABLET PO SCH (08:48)
[2019-03-26] MEDS: LISINOPRIL 40MG TABLET PO SCH (09:00)
[2019-03-26] MEDS: CARVEDILOL 6.25 MG TABLET PO SCH (09:00)
[2019-03-26] MEDS: ALLOPURINOL 100 MG TABLET PO SCH (09:00)
[2019-03-26 12:03] VITALS: BP 144/73
[2019-03-26 15:11] VITALS: BP 131/61
[2019-03-26 17:14] VITALS: BP 131/61
== END 2019-03-26 16:16 | disposition home or self-care (01) | DRG 291 ==
LOC: ER 16:21 → 7WST 21:05 → EDBEDREQTM 21:10 → EDBEDREQ 21:10 → ENRESERV 21:18
PROVIDERS: ADMIT Internal Medicine Nephrology; ATTEND Internal Medicine Nephrology
PROC: 30233N1 Transfusion of Nonautologous Red Blood Cells into Peripheral Vein, Percutaneous Approach (ICD-10-PCS; 2019-03-22)
PROC: 0W9G3ZZ Drainage of Peritoneal Cavity, Percutaneous Approach (ICD-10-PCS; principal; 2019-03-24)
PROC: 5A1D70Z Performance of Urinary Filtration, Intermittent, Less than 6 Hours Per Day (ICD-10-PCS; 2019-03-26)
DX: I13.2 Hypertensive heart and chronic kidney disease with heart failure and with stage 5 chronic kidney disease, or end stage renal disease (principal); N18.6 End stage renal disease; E43 Unspecified severe protein-calorie malnutrition; K92.2 Gastrointestinal hemorrhage, unspecified; Z68.1 Body mass index [BMI] 19.9 or less, adult; I50.9 Heart failure, unspecified; J44.9 Chronic obstructive pulmonary disease, unspecified; K70.31 Alcoholic cirrhosis of liver with ascites; B19.20 Unspecified viral hepatitis C without hepatic coma; D63.1 Anemia in chronic kidney disease; I27.20 Pulmonary hypertension, unspecified; M10.9 Gout, unspecified; D72.819 Decreased white blood cell count, unspecified; G90.8 Other disorders of autonomic nervous system; Z90.710 Acquired absence of both cervix and uterus; Z99.2 Dependence on renal dialysis; Z88.1 Allergy status to other antibiotic agents; Z79.899 Other long term (current) drug therapy
CPT/HCPCS: 36415; 36430; 49083; 71045; 80048; 82270; 83880; 84100; 84484; 85014; 85018; 85027; 86850; 86900; 86920; 93005; 93970; 94640; 96374; 97162; 97530; 99285; J0885; J2405; J7040; J7050; J7620; P9016; P9021

== ENCOUNTER → 2019-06-04 | Day surgery (SDC) | payer MEDICARE, MEDICAID ==
[~2019-06-04] MED LIST changes: +LIDOCAINE HCL 1% 20ML VIAL (Pyxis) INJ ONE; +SODIUM BICARBONATE 4% (2.4MEQ) 5ML VIAL IV ONE
== END | disposition home or self-care (01) ==
LOC: RAD 12:41
PROVIDERS: ATTEND Internal Medicine Nephrology
DX: K70.31 Alcoholic cirrhosis of liver with ascites (principal); Z79.899 Other long term (current) drug therapy; Z88.8 Allergy status to other drugs, medicaments and biological substances; Z82.49 Family history of ischemic heart disease and other diseases of the circulatory system; Z80.8 Family history of malignant neoplasm of other organs or systems; Z82.5 Family history of asthma and other chronic lower respiratory diseases
CPT/HCPCS: 49083; J3490

== ENCOUNTER 2019-07-08 13:47 | Inpatient (IN) | payer MEDICARE, MEDICAID ==
[2019-07-08] VITALS (7 sets, daily range): BP systolic 182–227; BP diastolic 60–102
[~2019-07-08] VITALS: Ht 165.1 cm; Wt 49.2 kg
[~2019-07-08 13:47] MED LIST changes: -LIDOCAINE HCL 1% 20ML VIAL (Pyxis) INJ ONE; -SODIUM BICARBONATE 4% (2.4MEQ) 5ML VIAL IV ONE
[2019-07-08 16:00] LABS: BASOPHILS % 1.1 % (0.0-2.0); EOSINOPHILS % 3.3 % (0.0-5.0); LYMPHOCYTES % 30.7 % (20.0-50.0); MEAN CORPUSCULAR HEMOGLOBIN 29.5 pg (28.0-32.0); MEAN CORPUSCULAR VOLUME 95.9 fL (81.0-99.0); MEAN PLATELET VOLUME 9.3 fl (7.4-10.4); MONOCYTES % 8.8 % (2.0-8.0); NEUTROPHILS % 56.1 % (40.0-76.0); PLATELET 128 x1000/uL (130-400); RED BLOOD CELL COUNT 1.53 mill/uL (4.2-5.4); RED CELL DISTRIBUTION WIDTH 18.3 % (11.6-14.6)
[2019-07-08 16:02] LABS: HEMATOCRIT. 14.7 % (36.0-48.0); HEMOGLOBIN. 4.5 g/dL (12.0-16.0)
[2019-07-08 16:04] LABS: PARTIAL THROMBOPLASTIN TIME 31.7 sec (23.4-31.0); PROTHROMBIN TIME 10.7 sec (9.6-11.0)
[2019-07-08 16:09] LABS: TOTAL IRON BINDING CAPACITY 319 ug/dL (250-450)
[2019-07-08] MEDS ORDERED: HYDR-4001 PO (20:08)
[2019-07-08] MEDS ORDERED: MORPHINE SULFATE 2 MG/ML CPJ (NOT FOR IM USE) IV PRN (20:15)
[2019-07-08] MEDS ORDERED: LORAZEPAM 2MG/ML CPJ IV PRN (20:15)
[2019-07-08] MEDS ORDERED: ONDANSETRON HCL 4MG/2ML INJ IV PRN (20:15)
[2019-07-08] MEDS ORDERED: DOCUSATE SODIUM 100MG CAPSULE PO PRN (20:15)
[2019-07-08] MEDS ORDERED: ALBUTEROL (0.083%) 2.5MG/3ML NEB HHN PRN (21:15)
[2019-07-08] MEDS: CLONIDINE 0.1MG TABLET PO PRN (22:01)
[2019-07-08] MEDS: HYDRALAZINE HCL 50MG TABLET PO SCH (22:01)
[2019-07-08] MEDS: HYDROCODONE/ACETAMINOPHEN 5/325MG TABLET PO PRN (22:29)
[2019-07-08] MEDS ORDERED: ACETAMINOPHEN 325MG TABLET PO PRN (22:30)
[2019-07-09] VITALS (13 sets, daily range): BP systolic 155–210; BP diastolic 65–93
[2019-07-09 00:18] LABS: HEMOGLOBIN 5.5 g/dL (12.0-16.0)
[2019-07-09 00:51] LABS: PROTHROMBIN TIME 10.6 sec (9.6-11.0)
[2019-07-09 01:21] LABS: CLARITY URINE CLEAR (CLEAR); COLOR URINE YELLOW (YELLOW); KETONES URINE NEGATIVE (NEGATIVE); LEUKOCYTE ESTERASE URINE NEGATIVE (NEGATIVE); NITRITE URINE NEGATIVE (NEGATIVE); OCCULT BLOOD URINE TRACE (NEGATIVE); PROTEIN URINE 3+ (NEGATIVE); SPECIFIC GRAVITY URINE 1.014 (1.005-1.030); UROBILINOGEN URINE 0.2 E.U./dL (0.2-1.0)
[2019-07-09 01:23] LABS: *AMPHETAMINES SCREEN URINE NEGATIVE (NEGATIVE); *BARBITURATES SCREEN URINE NEGATIVE (NEGATIVE); *BENZODIAZEPINES SCREEN URINE NEGATIVE (NEGATIVE); *COCAINE SCREEN URINE NEGATIVE (NEGATIVE); CANNABINOID URINE SCREEN PRESUMTIVE POSITIVE (NEGATIVE); METHADONE URINE SCREEN NEGATIVE (NEGATIVE); OPIATES URINE SCREEN NEGATIVE (NEGATIVE)
[2019-07-09 01:24] LABS: PHENCYCLIDINE URINE SCREEN NEGATIVE (NEGATIVE)
[2019-07-09] MEDS: CLONIDINE 0.1MG TABLET PO PRN (04:20)
[2019-07-09] MEDS: HYDRALAZINE HCL 50MG TABLET PO SCH ×3 (05:57→21:42)
[2019-07-09 06:33] LABS: BASOPHILS % 1.1 % (0.0-2.0); EOSINOPHILS % 4.2 % (0.0-5.0); HEMATOCRIT. 21.2 % (36.0-48.0); LYMPHOCYTES % 28.8 % (20.0-50.0); MEAN CORPUSCULAR HEMOGLOBIN 29.6 pg (28.0-32.0); MEAN CORPUSCULAR VOLUME 90.1 fL (81.0-99.0); MEAN PLATELET VOLUME 9.3 fl (7.4-10.4); MONOCYTES % 11.2 % (2.0-8.0); NEUTROPHILS % 54.7 % (40.0-76.0); PLATELET 106 x1000/uL (130-400); RED BLOOD CELL COUNT 2.35 mill/uL (4.2-5.4); RED CELL DISTRIBUTION WIDTH 17.5 % (11.6-14.6)
[2019-07-09] MEDS: FUROSEMIDE 40MG/4ML VIAL IVP SCH ×2 (08:50→17:36)
[2019-07-09] MEDS: ALLOPURINOL 100 MG TABLET PO SCH (08:51)
[2019-07-09] MEDS: CARVEDILOL 6.25 MG TABLET PO SCH ×2 (08:51→17:36)
[2019-07-09] MEDS: FOLIC ACID 1MG TABLET PO SCH (08:51)
[2019-07-09] MEDS ORDERED: SILDENAFIL CITRATE 20MG TABLET PO SCH (09:00)
[2019-07-09] MEDS ORDERED: LIDOCAINE HCL 1% 20ML VIAL (Pyxis) INJ ONE (10:53)
[2019-07-09] MEDS ORDERED: SODIUM BICARBONATE 4% (2.4MEQ) 5ML VIAL IV ONE (10:54)
[2019-07-09] MEDS: PANTOPRAZOLE 40MG DR TABLET PO SCH (21:42)
[2019-07-10] VITALS: BP 160/67
[2019-07-10 00:35] LABS: PROTHROMBIN TIME 10.7 sec (9.6-11.0)
[2019-07-10 02:47] LABS: HEMATOCRIT 26.8 % (36.0-48.0)
[2019-07-10 04:00] VITALS: BP 157/80
[2019-07-10] MEDS: HYDRALAZINE HCL 50MG TABLET PO SCH ×3 (05:56→21:41)
[2019-07-10] MEDS: PANTOPRAZOLE 40MG DR TABLET PO SCH (06:42)
[2019-07-10 06:52] LABS: EOSINOPHILS % 4.5 % (0.0-5.0); HEMATOCRIT. 26.4 % (36.0-48.0); HEMOGLOBIN. 8.9 g/dL (12.0-16.0); LYMPHOCYTES % 23.9 % (20.0-50.0); MEAN CORPUSCULAR HEMOGLOBIN 29.8 pg (28.0-32.0); MEAN CORPUSCULAR VOLUME 87.9 fL (81.0-99.0); MEAN PLATELET VOLUME 9.5 fl (7.4-10.4); MONOCYTES % 7.5 % (2.0-8.0); NEUTROPHILS % 63.1 % (40.0-76.0); PLATELET 85 x1000/uL (130-400)
[2019-07-10 08:00] VITALS: BP 178/68
[2019-07-10] MEDS: FUROSEMIDE 40MG/4ML VIAL IVP SCH ×2 (09:11→17:14)
[2019-07-10] MEDS: ALLOPURINOL 100 MG TABLET PO SCH (09:11)
[2019-07-10] MEDS: CARVEDILOL 6.25 MG TABLET PO SCH ×2 (09:11→17:14)
[2019-07-10] MEDS: FERROUS SULFATE 325MG TABLET PO SCH ×3 (09:11→17:14)
[2019-07-10] MEDS: FOLIC ACID 1MG TABLET PO SCH (09:11)
[2019-07-10] MEDS ORDERED: BISACODYL 5MG TABLET PO PRN (11:45)
[2019-07-10 12:00] VITALS: BP 169/72
[2019-07-10 16:00] VITALS: BP 162/68
[2019-07-10] MEDS ORDERED: POTASSIUM CHLORIDE 20MEQ TABLET SR PO NR (17:15)
[2019-07-10] MEDS ORDERED: PANTOPRAZOLE SODIUM 40 MG/VIAL IV SCH (21:00)
[2019-07-10] MEDS: HYDROCODONE/ACETAMINOPHEN 5/325MG TABLET PO PRN (21:40)
[2019-07-11] VITALS: BP 144/54
[2019-07-11 04:00] VITALS: BP 177/72
[2019-07-11] MEDS: PANTOPRAZOLE SODIUM 40 MG/VIAL IV SCH ×2 (05:27→17:58)
[2019-07-11] MEDS: HYDRALAZINE HCL 50MG TABLET PO SCH ×3 (05:27→21:27)
[2019-07-11 06:20] LABS: BASOPHILS % 0.7 % (0.0-2.0); EOSINOPHILS % 5.4 % (0.0-5.0); HEMATOCRIT. 28.5 % (36.0-48.0); HEMOGLOBIN. 9.4 g/dL (12.0-16.0); LYMPHOCYTES % 27.5 % (20.0-50.0); MEAN CORPUSCULAR HEMOGLOBIN 29.2 pg (28.0-32.0); MEAN CORPUSCULAR VOLUME 88.7 fL (81.0-99.0); MEAN PLATELET VOLUME 9.5 fl (7.4-10.4); NEUTROPHILS % 58.4 % (40.0-76.0); PLATELET 95 x1000/uL (130-400); RED BLOOD CELL COUNT 3.22 mill/uL (4.2-5.4); RED CELL DISTRIBUTION WIDTH 17.1 % (11.6-14.6)
[2019-07-11] MEDS: FERROUS SULFATE 325MG TABLET PO SCH ×2 (07:45→10:34)
[2019-07-11] MEDS: CARVEDILOL 6.25 MG TABLET PO SCH ×2 (07:46→10:37)
[2019-07-11] MEDS: FOLIC ACID 1MG TABLET PO SCH ×2 (07:47→10:37)
[2019-07-11] MEDS: ALLOPURINOL 100 MG TABLET PO SCH ×2 (07:47→10:37)
[2019-07-11 08:00] VITALS: BP 205/79
[2019-07-11] MEDS: FUROSEMIDE 40MG/4ML VIAL IVP SCH (08:01)
[2019-07-11 12:00] VITALS: BP 168/66
[2019-07-11 16:00] VITALS: BP 177/74
[2019-07-11] MEDS: IRON SUCROSE COMPLEX 100 MG/5 ML ML IV SCH (16:02)
[2019-07-11] MEDS: FUROSEMIDE 40MG TABLET PO SCH (17:57)
[2019-07-11 19:58] VITALS: BP 169/70
[2019-07-12] VITALS (8 sets, daily range): BP systolic 146–187; BP diastolic 63–88
[2019-07-12] MEDS: HYDROCODONE/ACETAMINOPHEN 5/325MG TABLET PO PRN (00:02)
[2019-07-12] MEDS: HYDRALAZINE HCL 50MG TABLET PO SCH ×3 (05:14→21:54)
[2019-07-12] MEDS: PANTOPRAZOLE SODIUM 40 MG/VIAL IV SCH ×2 (06:06→18:00)
[2019-07-12] MEDS: FUROSEMIDE 40MG TABLET PO SCH ×2 (06:50→17:00)
[2019-07-12 07:02] LABS: BASOPHILS % 1.2 % (0.0-2.0); EOSINOPHILS % 8.3 % (0.0-5.0); HEMATOCRIT. 28.5 % (36.0-48.0); HEMOGLOBIN. 9.3 g/dL (12.0-16.0); MEAN CORPUSCULAR HEMOGLOBIN 29.2 pg (28.0-32.0); MEAN CORPUSCULAR VOLUME 89.7 fL (81.0-99.0); MEAN PLATELET VOLUME 9.4 fl (7.4-10.4); MONOCYTES % 8.2 % (2.0-8.0); NEUTROPHILS % 56.3 % (40.0-76.0); PLATELET 98 x1000/uL (130-400); RED BLOOD CELL COUNT 3.18 mill/uL (4.2-5.4)
[2019-07-12] MEDS: CARVEDILOL 6.25 MG TABLET PO SCH ×2 (09:00→17:00)
[2019-07-12] MEDS: IRON SUCROSE COMPLEX 100 MG/5 ML ML IV SCH (09:08)
[2019-07-12] MEDS ORDERED: SIMETHICONE 40 MG/0.6 ML 30ML ONE (10:16)
[2019-07-12] MEDS ORDERED: FENTANYL CITRATE/PF 50MCG/ML 2ML VIAL ONE (10:16)
[2019-07-12] MEDS ORDERED: MIDAZOLAM HCL 5 MG/5 ML VIAL ONE (10:16)
[2019-07-12] MEDS ORDERED: MIDAZOLAM HCL 5 MG/5 ML VIAL IV PRN (10:16)
[2019-07-12] MEDS ORDERED: FENTANYL CITRATE/PF 50MCG/ML 2ML VIAL IV PRN (10:16)
[2019-07-12] MEDS: CLONIDINE 0.1MG TABLET PO PRN (17:01)
[2019-07-12] MEDS ORDERED: EPOETIN ALFA 4000UNITS/ML VIAL SUBCUT SCH (21:00)
[2019-07-13] VITALS: BP 141/94
[2019-07-13 00:13] VITALS: BP 141/94
[2019-07-13 04:00] VITALS: BP 156/65
[2019-07-13] MEDS: FUROSEMIDE 40MG TABLET PO SCH (06:09)
[2019-07-13] MEDS: HYDRALAZINE HCL 50MG TABLET PO SCH (06:09)
[2019-07-13] MEDS: PANTOPRAZOLE SODIUM 40 MG/VIAL IV SCH (06:09)
[2019-07-13 06:38] LABS: EOSINOPHILS % 8.8 % (0.0-5.0); HEMATOCRIT. 26.5 % (36.0-48.0); HEMOGLOBIN. 8.6 g/dL (12.0-16.0); LYMPHOCYTES % 30.6 % (20.0-50.0); MEAN CORPUSCULAR HEMOGLOBIN 29.3 pg (28.0-32.0); MEAN CORPUSCULAR VOLUME 89.9 fL (81.0-99.0); MEAN PLATELET VOLUME 9.5 fl (7.4-10.4); MONOCYTES % 9.1 % (2.0-8.0); NEUTROPHILS % 50.5 % (40.0-76.0); PLATELET 90 x1000/uL (130-400); RED BLOOD CELL COUNT 2.94 mill/uL (4.2-5.4); RED CELL DISTRIBUTION WIDTH 17.2 % (11.6-14.6)
[2019-07-13 07:56] VITALS: BP 144/67
[2019-07-13] MEDS ORDERED: SODIUM BICARBONATE 4% (2.4MEQ) 5ML VIAL IV ONE (08:05)
[2019-07-13] MEDS ORDERED: LIDOCAINE HCL 1% 20ML VIAL (Pyxis) INJ ONE (08:05)
[2019-07-13] MEDS: ALLOPURINOL 100 MG TABLET PO SCH (11:22)
[2019-07-13] MEDS: FOLIC ACID 1MG TABLET PO SCH (11:22)
[2019-07-13] MEDS: CARVEDILOL 6.25 MG TABLET PO SCH (11:23)
[2019-07-13 12:07] VITALS: BP 152/57
[2019-07-13] MEDS: HYDROCODONE/ACETAMINOPHEN 5/325MG TABLET PO PRN (13:41)
[2019-07-13 13:56] VITALS: BP 144/67
== END 2019-07-13 16:09 | disposition home or self-care (01) | DRG 377 ==
LOC: ER 13:47 → 6EST 15:09 → EDBEDREQ 15:17 → EDBEDREQTM 15:17 → ENRESERV 15:37 → 6WST 18:08
PROVIDERS: ADMIT Internal Medicine Nephrology; ATTEND Internal Medicine Nephrology
PROC: 30233N1 Transfusion of Nonautologous Red Blood Cells into Peripheral Vein, Percutaneous Approach (ICD-10-PCS; principal; 2019-07-09)
PROC: 5A1D70Z Performance of Urinary Filtration, Intermittent, Less than 6 Hours Per Day (ICD-10-PCS; 2019-07-09)
PROC: 0W9G3ZZ Drainage of Peritoneal Cavity, Percutaneous Approach (ICD-10-PCS; 2019-07-09)
PROC: 0DBN8ZZ Excision of Sigmoid Colon, Via Natural or Artificial Opening Endoscopic (ICD-10-PCS; 2019-07-12)
PROC: 0DB68ZX Excision of Stomach, Via Natural or Artificial Opening Endoscopic, Diagnostic (ICD-10-PCS; 2019-07-12)
PROC: 0JPV3XZ Removal of Tunneled Vascular Access Device from Upper Extremity Subcutaneous Tissue and Fascia, Percutaneous Approach (ICD-10-PCS; 2019-07-13)
PROC: 05PYX3Z Removal of Infusion Device from Upper Vein, External Approach (ICD-10-PCS; 2019-07-13)
DX: K29.61 Other gastritis with bleeding (principal); N18.6 End stage renal disease; E43 Unspecified severe protein-calorie malnutrition; D62 Acute posthemorrhagic anemia; I13.2 Hypertensive heart and chronic kidney disease with heart failure and with stage 5 chronic kidney disease, or end stage renal disease; R18.8 Other ascites; Z68.1 Body mass index [BMI] 19.9 or less, adult; D61.818 Other pancytopenia; D50.9 Iron deficiency anemia, unspecified; E87.70 Fluid overload, unspecified; K74.60 Unspecified cirrhosis of liver; Z99.2 Dependence on renal dialysis; I50.9 Heart failure, unspecified; F17.210 Nicotine dependence, cigarettes, uncomplicated; M10.9 Gout, unspecified; R53.81 Other malaise; I27.20 Pulmonary hypertension, unspecified; K29.80 Duodenitis without bleeding; K57.30 Diverticulosis of large intestine without perforation or abscess without bleeding; K64.8 Other hemorrhoids; K44.9 Diaphragmatic hernia without obstruction or gangrene; J44.9 Chronic obstructive pulmonary disease, unspecified; B18.2 Chronic viral hepatitis C; Z90.710 Acquired absence of both cervix and uterus; Z91.15 Patient's noncompliance with renal dialysis; Z88.1 Allergy status to other antibiotic agents
CPT/HCPCS: 36415; 36589; 49083; 76705; 80048; 80305; 81003; 82270; 83540; 83550; 85014; 85018; 85049; 85384; 86850; 86900; 86920; 88305; 88313; 99291; C9113; J0885; J1940; J2250; J2270; J2405; J3010; J3490; P9016

== ENCOUNTER → 2019-08-13 | Day surgery (SDC) | payer MEDICARE, MEDICAID ==
[~2019-08-13] MED LIST changes: +HYDR-4001 PO; +LIDOCAINE HCL 1% 20ML VIAL (Pyxis) INJ ONE; +SODIUM BICARBONATE 4% (2.4MEQ) 5ML VIAL IV ONE
== END | disposition home or self-care (01) ==
LOC: RAD 13:12
PROVIDERS: ATTEND Internal Medicine Nephrology
DX: R18.8 Other ascites (principal); K74.69 Other cirrhosis of liver; F17.210 Nicotine dependence, cigarettes, uncomplicated; Z79.899 Other long term (current) drug therapy; Z88.1 Allergy status to other antibiotic agents; Z82.49 Family history of ischemic heart disease and other diseases of the circulatory system
CPT/HCPCS: 49083; J3490